=== PATIENT | male | born 1985 | race Caucasian/White ===

== ENCOUNTER 2020-06-10 02:14 | Emergency (ER) | payer MEDICAID, SELFPAY ==
--- NOTE | ~2020-06-10 | XR_ITS ---
EXAMINATION: RIGHT HAND 3 VIEWS CLINICAL INFORMATION: Pain and swelling. COMPARISON: None. TECHNIQUE: PA, lateral, oblique views of the right hand were obtained. FINDINGS: There are no acute fractures or dislocations. There is an old healed fourth metacarpal fracture. There is soft tissue prominence about the dorsum of the hand. XR/XR hand RT min 3V IMPRESSION: Soft tissue swelling without fracture or dislocation.
[2020-06-10 02:53] VITALS: BP 157/98; PULSE 84; RESP 16; TEMP 36.6; O2SAT 100; BMI 19.5
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
== END 2020-06-10 04:29 | disposition home or self-care (01) ==
PROVIDERS: Emergency Provider Student in an Organized Health Care Education/Training Program; PCP Internal Medicine
DX: S60.221A Contusion of right hand, initial encounter (principal); M79.641 Pain in right hand; Y29.XXXA Contact with blunt object, undetermined intent, initial encounter; Y93.9 Activity, unspecified; Y92.9 Unspecified place or not applicable; Y99.9 Unspecified external cause status
CPT/HCPCS: 73130; 99283

== ENCOUNTER 2021-03-17 11:18 | Emergency (ER) | payer MEDICAID, SELFPAY ==
--- NOTE | ~2021-03-17 | XR_ITS ---
EXAMINATION: XR CLAVICLE, RIGHT CLINICAL INFORMATION: Deformity COMPARISON: None TECHNIQUE: Frontal and oblique of the right clavicle. FINDINGS: Displaced fracture of the mid right clavicle with bone overlap by approximately 2.4 cm, the distal half of the clavicle displaced inferiorly by about 1.8 cm. Adjacent ribs are intact. XR/XR clavicle RT IMPRESSION: Displaced fracture mid diaphysis right clavicle.
[2021-03-17 12:51] VITALS: BP 118/74; PULSE 95; RESP 16; TEMP 36.6; O2SAT 98; BMI 23.7
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
== END 2021-03-17 13:31 | disposition home or self-care (01) ==
PROVIDERS: Emergency Provider Emergency Medicine; PCP Internal Medicine
DX: S42.001A Fracture of unspecified part of right clavicle, initial encounter for closed fracture (principal); M25.511 Pain in right shoulder; W18.30XA Fall on same level, unspecified, initial encounter; Y93.9 Activity, unspecified; Y92.9 Unspecified place or not applicable; Y99.9 Unspecified external cause status
CPT/HCPCS: 73000; 99284

== ENCOUNTER → 2021-03-19 13:50 | Outpatient (BNVA) | payer MEDICAID, SELFPAY | PROVIDERS: PCP Internal Medicine; Visit Provider Physician Assistant | DX: S42.001A Fracture of unspecified part of right clavicle, initial encounter for closed fracture (principal) | CPT/HCPCS: 99202 ==

== ENCOUNTER 2021-03-20 05:59 | Day surgery (SDC) | payer MEDICAID, SELFPAY ==
[2021-03-20] VITALS (9 sets, daily range): BP systolic 112–152; BP diastolic 71–89; PULSE 78–98; RESP 15–18; TEMP 36.4–36.7; O2SAT 95–99; BMI 20.2
--- NOTE | ~2021-03-20 | FL_ITS ---
EXAMINATION: XR FLUOROSCOPY WITH IMAGES CLINICAL INFORMATION: Right clavicular fracture, post reduction. COMPARISON: Radiographs right clavicle 03/17/2021. TECHNIQUE: Fluoroscopy performed by Dr. Chester Flores. Fluoroscopy time: 0.1 minutes DAP: 0.0083 Gycm2 Images: 3 FINDINGS: Mid clavicular fracture is reduced with superior side plate and wrist. Fracture fragments are in anatomic alignment. Hardware is intact. Acromioclavicular alignment is normal. FL/FL guidance in OR IMPRESSION: Status post reduction. Hardware intact.
--- NOTE | 2021-03-20 07:30 | MHC.SHP ---
Pre-Procedural Eval Section A Date of Service: 03/20/21 The patient is an INPATIENT: No Changes since office visit: Yes Patient answered all questions; No Cold of Flu in the past 2 weeks, No New Medical Problems and No Changes in Medication The History & Physical has been completed within 30 days and I have reviewed it.: Yes Section B Chief Complaint: fx of right clavical Allergies: Allergies Allergy/AdvReac Type Severity Reaction Status Date / Time No Known Allergies Allergy Verified 03/20/21 06:08 Plan I have reviewed the history and physical and performed a pertinent physical examination on my patient. No changes have occurred unless specified.
--- NOTE | 2021-03-20 09:01 | P.BOP_ITS ---
Brief Operative Note Date of Service: 03/20/21 Pre-op diagnosis: right clavicle fracture Procedure: ORIF right clavicle fracture Implants: Christina clavicle plate Surgeon: Chester Flores MD Anesthesia: GETA Was an Supervisor Special Effects used for this Procedure?: Yes Supervisor Special Effects: Carlos Uribe Estimated blood loss (mL): 25 IV fluids (mL): 800 Pathology: none sent Condition: stable Disposition: PACU
[2021-03-20] MEDS: oxyCODONE HCl Immed Release 5 MG TABLET PO (09:27)
[2021-03-20] MEDS: Acetaminophen 325 MG TABLET 650 MG PO (09:28)
[2021-03-20] MEDS: fentaNYL citrate/PF 100 MCG/2 ML VIAL 25 MCG IVPUSH (09:51)
--- NOTE | 2021-03-20 10:25 | HO.ANESPROP2 ---
HPI - Anesthesia Eval Consult details Narrative: 35 M for clavicle ORIF PMFSH Active Problems Active Problems: All Active Problems (Updated 03/20/21 @ 06:07 by Kelli Elmore RN) Right clavicle fracture (Acute) Past Medical History Medical History Anxiety Depression HTN (hypertension) Hypothyroid Family History Family history of problems with anesthesia: No Surgical History Surgical History History of back surgery History of Problems with Anesthesia: No Social History Social History Alcohol intake: current Alcohol intake frequency: a few times a week Alcohol type: beer Patient Tobacco Use Status: Current everyday Tobacco user Cigarette Packs Per Day: 1 Cigarettes Per Day: 20.0 Use of substances other than those prescribed or required for medical reasons: Yes Substance Use Frequency: Occasionally Are you DNR?: No Advance Directives: No Advance Directives Information Provided: Yes Current occupational status: unemployed Current occupation: rt handed Meds Allergies Allergy/AdvReac Type Severity Reaction Status Date / Time No Known Allergies Allergy Verified 03/20/21 06:08 Home Medications Medication Instructions Recorded Confirmed Last Taken Type naproxen sodium 220 mg tablet 220 mg PO BID PRN 03/19/21 Unknown History (Aleve) amlodipine 2.5 mg tablet 1 tab PO DAILY 03/20/21 03/20/21 Unknown History citalopram 40 mg tablet 1 tab PO DAILY 03/20/21 03/20/21 03/20/21 04:30 History levothyroxine 25 mcg tablet 1 tab PO DAILY 03/20/21 03/20/21 03/20/21 04:30 History metoprolol succinate 100 mg 1 tab PO DAILY 03/20/21 03/20/21 03/20/21 04:30 History tablet,extended release 24 hr Exam Exam Date and Time: March 20, 2021 1025 Height,Weight and Vital Signs: Height 5 ft 11 in Weight 145 lb Last Vital Signs Temp 97.7 F 03/20/21 09:11 Pulse 78 03/20/21 10:11 Resp 16 03/20/21 10:11 BP 139/86 03/20/21 10:11 Pulse Ox 96 03/20/21 10:11 Airway Mallampati Class: II TM Dist: >3cm Neck ROM: Full Loose/Missing/Broken Teeth: Yes Assessment and Plan Assessment Anesthesia Assessment: Anesthesia Plan Discussed and Chart Reviewed Final Anesthetic Review Family History of Problems with Anesthesia: No History of Problems with Anesthesia: No NPO: Yes ASA Class: II Final Preanesthetic Review: No Changes in Pt Med Stat, Meds/Allgs Chart Reviewed, Consent Obtained/Reviewed and Anes Risks/Benef Reviewed Patient Risk: Low Procedure Risk: Low Anesthetic Plan Anesthetic Plan: GA Disposition: Standard PACU
--- NOTE | 2021-03-21 10:42 | W.PM.OPN ---
Operative Note Operative Note Date of Service: 03/20/21 Narrative: Date of Service: 03/20/21 Pre-op diagnosis: right clavicle fracture Procedure: ORIF right clavicle fracture Implants: Christina clavicle plate Surgeon: Chester Flores MD Anesthesia: GETA Was an Maintenance Shop Welder used for this Procedure?: Yes Maintenance Shop Welder: Carlos Uribe Estimated blood loss (mL): 25 IV fluids (mL): 800 Pathology: none sent Condition: stable Disposition: PACU Patient was brought to the operating room and placed in the beach chair position on the surgical table. The site was prepped and draped in standard sterile fashion and a time out was called to identify proper site, proper procedure and IV antibiotics per weight were administered. I began by making a superior incision over the clavicle. Once through skin Littler scissors were used to dissect through the clavicular fascia. The medial fracture fragment was identified and a lobster claw tenaculum was used to stabilize it. The lateral fracture fragments were then identified and, using a combination of irrigation and sharp debridement, I cleaned up the fracture fragments. This was the shortened with some anterior comminution and a 6 hole bridge plate was selected. I used an additional lobster claw to provisionally reduce the fracture and the bridge plate was placed superiorly and held in place with olive-tipped K-wires while radiographs were obtained. Visually I was satisfied with the fracture reduction and radiographs demonstrated sufficient length of the plate. I then used standard AO technique to place 3 bicortical screws medial to the fracture and 3 bicortical screws laterally so that the plate spanned the comminuted midshaft fracture. Again biplanar fluoroscopy was used to confirm appropriate hardware location, fracture reduction and screw length. Once I was satisfied with these parameters I copiously irrigated and closed with absorbable suture, skin glue and Steri-Strips. Patient was placed in sterile dressing and extubated brought to recovery room stable condition. There were no known complications.
== END 2021-03-20 10:57 | disposition home or self-care (01) ==
PROVIDERS: PCP Internal Medicine; Visit Provider Orthopaedic Surgery
PROC: (CPT 23515; principal; 2021-03-20 07:30)
DX: S42.001A Fracture of unspecified part of right clavicle, initial encounter for closed fracture (principal); W19.XXXA Unspecified fall, initial encounter; Y93.9 Activity, unspecified; Y92.9 Unspecified place or not applicable; Y99.8 Other external cause status; I10 Essential (primary) hypertension; F41.8 Other specified anxiety disorders; F17.210 Nicotine dependence, cigarettes, uncomplicated; E03.9 Hypothyroidism, unspecified; Z79.899 Other long term (current) drug therapy
CPT/HCPCS: 23515; C1713; J0690; J1100; J1170; J1885; J2250; J2370; J2405; J3010

== ENCOUNTER 2021-04-02 09:49 | Outpatient (REF) | payer MEDICAID, SELFPAY ==
--- NOTE | ~2021-04-02 | XR_ITS ---
EXAMINATION: XR CLAVICLE, RIGHT CLINICAL INFORMATION: Fracture right clavicle. Follow-up. COMPARISON: Radiographs right clavicle 03/17/2021. TECHNIQUE: Two views of the right clavicle. FINDINGS: The mid right clavicular fracture is reduced with superior side compression plate and multiple screws. The hardware is intact. Fracture fragments are in near-anatomic alignment. There is no destructive process. The acromioclavicular alignment is normal. XR/XR clavicle RT IMPRESSION: Status post reduction mid right clavicular fracture.
== END 2021-04-02 09:50 | disposition home or self-care (01) ==
LOC: HO.HOSX 09:49
PROVIDERS: Visit Provider Physician Assistant
DX: S42.001D Fracture of unspecified part of right clavicle, subsequent encounter for fracture with routine healing (principal)
CPT/HCPCS: 73000; 99212

== ENCOUNTER → 2021-04-16 11:36 | Outpatient (BNVA) | payer MEDICAID, SELFPAY | PROVIDERS: Visit Provider Physician Assistant | DX: S42.001D Fracture of unspecified part of right clavicle, subsequent encounter for fracture with routine healing (principal) | CPT/HCPCS: 99212 ==

== ENCOUNTER → 2021-04-23 14:01 | Outpatient (BNVA) | payer MEDICAID, SELFPAY | PROVIDERS: Visit Provider Physician Assistant | DX: S42.001D Fracture of unspecified part of right clavicle, subsequent encounter for fracture with routine healing (principal) | CPT/HCPCS: 99212 ==

== ENCOUNTER 2021-05-08 12:25 | Outpatient (REF) | payer MEDICAID, SELFPAY ==
--- NOTE | ~2021-05-08 | XR_ITS ---
EXAMINATION: XR CLAVICLE, RIGHT CLINICAL INFORMATION: Fracture COMPARISON: Previous exam March 2021 TECHNIQUE: 2 of the right clavicle. FINDINGS: There is a plate and screws transfixing the right clavicle fracture. Orthopedic hardware appears unchanged. Fracture line is still seen. Overlying soft tissues are unremarkable. XR/XR clavicle RT IMPRESSION: ORIF of right clavicle fracture. No change from March 2021 exam.
== END 2021-05-08 12:26 | disposition home or self-care (01) ==
LOC: HO.HOSX 12:25
PROVIDERS: Visit Provider Physician Assistant
DX: S42.001D Fracture of unspecified part of right clavicle, subsequent encounter for fracture with routine healing (principal)
CPT/HCPCS: 73000; 99212

== ENCOUNTER 2021-05-15 11:00 | Outpatient (RCR) | payer MEDICAID, SELFPAY ==
--- NOTE | 2021-05-09 11:43 | MHC.PT.EP ---
[facility] [place] [facility] [place] [facility] [place] Office [address] Roman Moyer [address] [phone] F: [phone] F: [phone] F: [phone] F: [phone] Physical Therapy Plan of Care Date of Evaluation: Date of Surgery: 03/21/2021 Diagnosis: fx of R clavicle s/p R clavicle ORIF Assessment: Patient is a 35 year old male presenting to PT s/p R clavicle ORIF on 03/21/2021. He presents today with impairments in pain, ROM, posture, and strength. 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 Pt expresses fpc goal of reduce pain and improve ROM, and is motivated to work towards this in PT. Clinical presentation today is most consistent with signs and sx associated with s/p R clavicle ORIF and pt will benefit from skilled PT to address the following problems and impairments noted upon evaluation: pain, ROM, posture, and strength. These problems limit the patient with the following functional activities: ADLs, work, reaching, lifting. The prescribed treatment plan of care is medically necessary. Co-morbidities of HTN were identified and taken into considerations of plan of care. Pt was educated on HEP, role of PT, prognosis, POC. Frequency and Duration: The patient will be seen 2 x week x 6 weeks Short Term Goals: Pt will demonstrate full shoulder ROM in all directions in 3 weeks. Pt will demonstrate improved shoulder strength by 1/3 MMT in 3 weeks. Pt will demonstrate improved postural awareness by sitting with biomechanically correct posture without cues throughout session to improve overall postural function in 3 weeks. Bricklayer Sewer Goals: Pt will demonstrate improved SPADI score by 13 points in 6 weeks for improved UE functional mobility. Pt will demonstrate ability to reach with min to no pain in 6 weeks for improved ability to complete ADLs. Pt will demonstrate ability to lift with min to no pain in 6 weeks for return to PLOF. Treatment Plan: Modalities to reduce pain, spasms and effusion. Manual therapy to restore motion and function. Therapeutic exercise to improve strength and flexibility. Neuromuscular re-education for posture and balance. Therapeutic activities to return to functional activities of daily living. Electronically signed by: Diane Mtz, PT, DPT, ATC Please sign and return to therapist. Thank you for your referral.
--- NOTE | 2021-05-25 11:23 | MHC.PT.DC ---
[facility] [place] Office [place] Office [place] Office [address] Roman Moyer [address] [phone] F: [phone] F: [phone] F: [phone] F: [phone] Physical Therapy Discharge Report Diagnosis: fx of R clavicle s/p R clavicle ORIF Date of Surgery: 03/21/2021 Date of Evaluation: 05/09/21 Date of Discharge: 05/25/21 Treatments to Date: 2 Cancellations to Date: 0 No Shows to Date: 3 Discharge Status: Visit Non-compliance Discharge Summary: Pt has failed to comply with [facility] attendance policy and now showed his last 3 appointments. Multiple attempts to reach patient have been unsuccessful and therefore pt current status unknown at this time. Electronically signed by: Diane Mtz, PT, DPT, ATC Please sign and return to therapist. Thank you for your referral.
== END 2021-05-25 11:23 | disposition home or self-care (01) ==
LOC: HO.PTCHIC 11:00
PROVIDERS: PCP Internal Medicine; Visit Provider Physician Assistant
DX: S42.001A Fracture of unspecified part of right clavicle, initial encounter for closed fracture (principal)
CPT/HCPCS: 97110; 97161

== ENCOUNTER 2021-08-06 08:16 | Outpatient (REF) | payer MEDICAID, SELFPAY ==
--- NOTE | ~2021-08-06 | XR_ITS ---
EXAMINATION: XR CLAVICLE, RIGHT CLINICAL INFORMATION: Fracture COMPARISON: X-ray 05/08/2021 TECHNIQUE: Two views of the right clavicle. FINDINGS: Plate and screws transfixing the right clavicle fracture. Hardware is stable, intact. Fracture plane remains visible, decreased in conspicuity. No new fractures are seen. XR/XR clavicle RT IMPRESSION: ORIF right clavicular fracture, with decreased conspicuity of the fracture plane.
== END 2021-08-06 08:17 | disposition home or self-care (01) ==
LOC: HO.HOSX 08:16
PROVIDERS: Visit Provider Physician Assistant
DX: S42.001D Fracture of unspecified part of right clavicle, subsequent encounter for fracture with routine healing (principal)
CPT/HCPCS: 73000; 99212

== ENCOUNTER 2021-12-18 20:22 | Emergency (ER) | payer MEDICAID, SELFPAY ==
[2021-12-18 20:38] VITALS: BP 148/92; PULSE 89; RESP 17; TEMP 37; O2SAT 99; BMI 20.2
== END 2021-12-18 21:50 | disposition left against medical advice (07) ==
LOC: HO.ED 21:35
PROVIDERS: Emergency Provider Emergency Medicine
DX: R51.9 Headache, unspecified (principal)
CPT/HCPCS: 99281

== ENCOUNTER 2022-07-13 16:33 | Emergency (ER) | payer OTHER, SELFPAY ==
--- NOTE | ~2022-07-13 | XR_ITS ---
EXAMINATION: XR KNEE, RIGHT CLINICAL INFORMATION: Knee pain and swelling COMPARISON: None available. TECHNIQUE: Four views of the right knee. FINDINGS: There is anatomic alignment. Joint spaces are maintained. No visible acute fracture or dislocation. There is anterior soft tissue swelling in the region of the distal quadriceps tendon, patellar and patellar tendon. There is limited visualization/evaluation of the underlying patellar tendon on x-ray. Findings are of uncertain etiology. Differential considerations include sequela of trauma, edema, hematoma, fluid collection, bursitis, tendon abnormality/injury. XR/XR knee RT 3V IMPRESSION: Prominent anterior soft tissue swelling in the region of the distal quadriceps tendon, patella, patellar tendon. Limited visualization/evaluation of the underlying patellar tendon. Differential consideration include sequela of trauma, edema, hematoma, fluid collection, bursitis, tendon abnormality/injury, inflammatory/infectious etiology. Clinically correlate. Further evaluation with CT or MRI as clinically warranted.
[2022-07-13 16:46] VITALS: BP 143/86; PULSE 87; RESP 18; TEMP 37.4; O2SAT 97; BMI 18.3
--- NOTE | 2022-07-13 16:48 | ED.LOWEXIN ---
HPI - Extremity Injury (Lower) General Chief Complaint: Extremity Injury, Lower <SIN Barger - Last Filed: 07/13/22 16:53> Stated Complaint: knee injury from work, swollen <SIN Barger - Last Filed: 07/13/22 16:53> Time Seen by Provider: 07/13/22 18:16 <SIN Barger - Last Filed: 07/13/22 16:53> Source: patient, RN notes reviewed and old records reviewed <KYLEE Wright - Last Filed: 07/14/22 01:47> Mode of arrival: ambulatory <KYLEE Wright - Last Filed: 07/14/22 01:47> Limitations: no limitations <KYLEE Wright - Last Filed: 07/14/22 01:47> History of Present Illness MD complaint: knee injury <KYLEE Wright - Last Filed: 07/14/22 01:47> Onset (ago): day(s) <KYLEE Wright - Last Filed: 07/14/22 01:47> Type of Injury: blunt <KYLEE Wright - Last Filed: 07/14/22 01:47> Place: work <KYLEE Wright - Last Filed: 07/14/22 01:47> Severity: moderate <KYLEE Wright - Last Filed: 07/14/22 01:47> Relieving factors: NSAID <KYLEE Wright - Last Filed: 07/14/22 01:47> Related Data Home Medications: Home Medications Medication Instructions Recorded Confirmed naproxen sodium 220 mg tablet 220 mg PO BID PRN Pain 03/19/21 05/08/21 (Aleve) amlodipine 2.5 mg tablet 1 tab PO DAILY 03/20/21 05/08/21 citalopram 40 mg tablet 1 tab PO DAILY 03/20/21 05/08/21 levothyroxine 25 mcg tablet 1 tab PO DAILY 03/20/21 05/08/21 metoprolol succinate 100 mg 1 tab PO DAILY 03/20/21 05/08/21 tablet,extended release 24 hr Previous Rx's Medication Instructions Recorded oxycodone-acetaminophen 5 mg-325 1 tab PO Q4-6H PRN pain 7 days #42 03/20/21 mg tablet (Percocet) tabs cephalexin 500 mg capsule 500 mg PO BID #20 caps 07/13/22 doxycycline monohydrate 100 mg 100 mg PO BID #20 caps 07/13/22 capsule prednisone 20 mg tablet 40 mg PO DAILY #6 tabs 07/13/22 <SIN Barger - Last Filed: 07/13/22 16:53> Allergies/Adverse Reactions: Allergies Allergy/AdvReac Type Severity Reaction Status Date / Time No Known Allergies Allergy Verified 12/18/21 20:39 <SIN Barger - Last Filed: 07/13/22 16:53> Review of Systems Constitutional: Constitutional: Denies weight gain and Denies weight loss <STACIE Wright-BC - Last Filed: 07/14/22 01:47> ENT: Reports system reviewed and no additional complaints, except as documented <EMILI WrightP-BC - Last Filed: 07/14/22 01:47> Cardiovascular: Cardiovascular: Reports no additional cardiovascular complaints <STACIE Wright-BC - Last Filed: 07/14/22 01:47> Respiratory: Respiratory: Reports no additional respiratory complaints <STACIE Wright-BC - Last Filed: 07/14/22 01:47> Gastrointestinal: Gastrointestinal: Reports no additional gastrointestinal complaints <STACIE Wright-BC - Last Filed: 07/14/22 01:47> Genitourinary: Genitourinary: Reports no additional male genitourinary complaints <EMILI WrightP-BC - Last Filed: 07/14/22 01:47> Musculoskeletal: Musculoskeletal: Reports arthralgias and Reports joint swelling <STACIE Wright-BC - Last Filed: 07/14/22 01:47> Neurologic: Reports system reviewed and no additional complaints, except as documented <STACIE Wright-BC - Last Filed: 07/14/22 01:47> Psychiatric: Psychiatric: Reports no additional psychiatric complaints <KYLEE Wright - Last Filed: 07/14/22 01:47> Endocrine: Endocrine: Reports no additional endocrine complaints <KYLEE Wright - Last Filed: 07/14/22 01:47> [facility] Past Medical History Medical History: Medical History Anxiety Depression HTN (hypertension) Hypothyroid <SIN Barger - Last Filed: 07/13/22 16:53> Surgical History: Surgical History History of back surgery <SIN Barger - Last Filed: 07/13/22 16:53> Social History Social History: Social History (Updated 08/06/21 @ 15:34 by Toshia Rios José Antonio) Alcohol intake: never Patient Tobacco Use Status: Current everyday Tobacco user Cigarette Packs Per Day: 1 Cigarettes Per Day: 20.0 Smoked in Last 30 Days: No Use of substances other than those prescribed or required for medical reasons: No Advance Directives: No Advance Directives Information Provided: No Current occupational status: employed and unemployed 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, 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 <SIN Barger - Last Filed: 07/13/22 16:53> Physical Exam Vital Signs: Vital Signs: Last Vital Signs Temp 99.4 F 07/13/22 16:46 Pulse 87 07/13/22 16:46 Resp 18 07/13/22 16:46 BP 143/86 H 07/13/22 16:46 Pulse Ox 97 07/13/22 16:46 O2 Del Method Room Air 07/13/22 16:46 BMI result Body Mass Index 18.3 <SIN Barger - Last Filed: 07/13/22 16:53> Vital Signs: Last Vital Signs Temp 99.4 F 07/13/22 16:46 Pulse 87 07/13/22 16:46 Resp 18 07/13/22 16:46 BP 143/86 H 07/13/22 16:46 Pulse Ox 97 07/13/22 16:46 O2 Del Method Room Air 07/13/22 16:46 BMI result Body Mass Index 18.3 <KYLEE Wright - Last Filed: 07/14/22 01:47> Const: General: healthy appearing, no acute distress and well developed <Bridget Rachael Jackson MUSHROOM SORTER GRADER-BC - Last Filed: 07/14/22 01:47> Nutritional Appearance: well nourished <Bridget Cano Renetta [employer]HROOM SORTER GRADER-BC - Last Filed: 07/14/22 01:47> Orientation/consciousness: patient oriented x3 <Bridget Rachael Renetta, MUSHROOM SORTER GRADER-BC - Last Filed: 07/14/22 01:47> HEENT: Head: Yes normal to inspection, Yes normocephalic and Yes atraumatic <Bridget Rachael Jackson [employer]HROOM SORTER GRADER-BC - Last Filed: 07/14/22 01:47> Face and sinus: Yes normal facial exam <Bridget Rachael Jackson [employer]HROOM SORTER GRADER-BC - Last Filed: 07/14/22 01:47> Mouth: Normal oral and palatal mucosa present <Bridgetjosé antonio Jackson MUSHROOM SORTER GRADER-BC - Last Filed: 07/14/22 01:47> Throat: Yes posterior oropharynx normal, Yes tonsils normal and Yes uvula midline <Bridget Rachael Jackson [employer]HROOM SORTER GRADER-BC - Last Filed: 07/14/22 01:47> Eyes: General: appearance normal, both eyes and all related structures <Bridget Rachael Jackson [employer]HROOM SORTER GRADER-BC - Last Filed: 07/14/22 01:47> Neck: Neck: Yes normal visual inspection, Yes full ROM and Yes trachea midline <Bridgetjosé antonio Jackson MUSHROOM SORTER GRADER-BC - Last Filed: 07/14/22 01:47> Thyroid: Thyroid normal <Bridget Rachael Jackson [employer]HROOM SORTER GRADER-BC - Last Filed: 07/14/22 01:47> Resp: Effort & Inspection: normal respiratory effort, able to speak in complete sentences, no tracheal deviation and symmetric chest movement <Bridgetjosé antonio Jackson MUSHROOM SORTER GRADER-BC - Last Filed: 07/14/22 01:47> Auscultation: clear to auscultation bilaterally <Bridgetjosé antonio Jackson [employer]HROOM SORTER GRADER-BC - Last Filed: 07/14/22 01:47> Cardio: Rate: regular rate <Bridget Rachael Jackson MUSHROOM SORTER GRADER-BC - Last Filed: 07/14/22 01:47> GI: Inspection: Yes normal to inspection and No distended <Bridget Rachael Pisanoo, MUSHROOM SORTER GRADER-BC - Last Filed: 07/14/22 01:47> Palpation (GI): Soft to palpation, not firm, nontender and No hepatosplenomegaly present <Bridget D Renetta, MUSHROOM SORTER GRADER-BC - Last Filed: 07/14/22 01:47> Auscultation: normal bowel sounds <Bridget D Renetta, MUSHROOM SORTER GRADER-BC - Last Filed: 07/14/22 01:47> : General: Yes no CVA tenderness <Bridget D Renetta, MUSHROOM SORTER GRADER-BC - Last Filed: 07/14/22 01:47> Back/Spine/Pelvis: Back: no CVA tenderness <Bridget D Renetta, MUSHROOM SORTER GRADER-BC - Last Filed: 07/14/22 01:47> Skin: General skin exam: elasticity normal, turgor normal and dry skin <Bridget D Renetta, MUSHROOM SORTER GRADER-BC - Last Filed: 07/14/22 01:47> Neuro: General: patient oriented x3 <Bridget D Renetta, MUSHROOM SORTER GRADER-BC - Last Filed: 07/14/22 01:47> Extrem: General: Yes other (Right knee swelling) <Bridget D Renetta, MUSHROOM SORTER GRADER-BC - Last Filed: 07/14/22 01:47> Right upper extremity: edema <Bridget D Renetta, MUSHROOM SORTER GRADER-BC - Last Filed: 07/14/22 01:47> Left upper extremity: edema <Bridget D Renetta, MUSHROOM SORTER GRADER-BC - Last Filed: 07/14/22 01:47> Knee images: 1. Swelling, redness, increased warmth <Cesia Leon PA - Last Filed: 07/13/22 16:53> Knee images: 1. Swelling, redness, increased warmth <Bridget Rachael Pisanoo, MUSHROOM SORTER GRADER-BC - Last Filed: 07/14/22 01:47> Psych: Appearance: grossly normal <Bridget D Renetta, MUSHROOM SORTER GRADER-BC - Last Filed: 07/14/22 01:47> Mental Status: mental status grossly normal <Bridget D Renetta, MUSHROOM SORTER GRADER-BC - Last Filed: 07/14/22 01:47> Speech and movement: Normal speech and movement present <KYLEE Wright - Last Filed: 07/14/22 01:47> Affect: normal affect <KYLEE Wright - Last Filed: 07/14/22 01:47> Attitude: cooperative <KYLEE Wright - Last Filed: 07/14/22 01:47> Thought process: Normal thought process present <KYLEE Wright - Last Filed: 07/14/22 01:47> Thought content: Normal thought content present <KYLEE Wright - Last Filed: 07/14/22 01:47> Insight: Good insight present (Psych) <KYLEE Wright - Last Filed: 07/14/22 01:47> Judgement: Good judgement present (Psych) <KYLEE Wright - Last Filed: 07/14/22 01:47> Course Course Course Narrative: This is an RME: Additional HPI, ROS, PE not included below will be deferred to primary provider. This is a 37 year old male, with a past medical history of hypertension, presenting to the emergency department with a complaint of right knee pain, redness, and swelling x 2 days. Patient states that he banged his right knee on a concrete wall. Patient is ambulatory. Right knee is erythematous, warm, and TTP. Limited flexion and extension of the right knee. Plan: R knee xray ordered. Basic labs ordered. <SIN Barger - Last Filed: 07/13/22 16:53> Reevaluation(s) Reevaluation #1: Prominent anterior soft tissue swelling in the region of distal quadriceps tendon, patella, patella tendon. Will order patient Keflex, doxycycline and prednisone for couple days. First dose will be given in the ER. Patient will follow-up with orthopedic surgeon. He will return to emergency department if his symptoms will get worse <KYLEE Wright - Last Filed: 07/14/22 01:47> Medications Administered Discontinued Medications Generic Name Dose Route Start Last Admin Trade Name Freq PRN Reason Stop Dose Admin Cephalexin HCl 500 mg 07/13/22 18:46 07/13/22 19:09 Cephalexin 500 Mg Capsule PO 07/13/22 18:47 500 mg ONCE STA Administration Doxycycline Monohydrate 100 mg 07/13/22 18:46 07/13/22 19:09 Doxycycline Monohydrate 100 Mg Capsule PO 07/13/22 18:47 100 mg ONCE ONE Administration Prednisone 40 mg 07/13/22 18:46 07/13/22 19:09 Prednisone 20 Mg Tablet PO 07/13/22 18:47 40 mg ONCE ONE Administration <SIN Barger - Last Filed: 07/13/22 16:53> Medications Administered Discontinued Medications Generic Name Dose Route Start Last Admin Trade Name Ry PRN Reason Stop Dose Admin Cephalexin HCl 500 mg 07/13/22 18:46 07/13/22 19:09 Cephalexin 500 Mg Capsule PO 07/13/22 18:47 500 mg ONCE STA Administration Doxycycline Monohydrate 100 mg 07/13/22 18:46 07/13/22 19:09 Doxycycline Monohydrate 100 Mg Capsule PO 07/13/22 18:47 100 mg ONCE ONE Administration Prednisone 40 mg 07/13/22 18:46 07/13/22 19:09 Prednisone 20 Mg Tablet PO 07/13/22 18:47 40 mg ONCE ONE Administration <STACIE Wright-BC - Last Filed: 07/14/22 01:47> Medical Decision Making Medical Decision Making MDM Narrative: Triage note his is a 37 year old male, with a past medical history of hypertension, presenting to the emergency department with a complaint of right knee pain, redness, and swelling x 2 days. Patient states that he banged his right knee on a concrete wall. Patient is ambulatory. Right knee is erythematous, warm, and TTP. Limited flexion and extension of the right knee. Plan: R knee xray ordered. Basic labs ordered. Patient re-evaluated, right knee red, warm to touch, x-ray reviewed soft tissue swelling no visible acute fracture or dislocation, joint spaces are maintained. Will send patient home with antibiotics. Patient had tetanus vaccine 3 weeks ago. Will give him prednisone for 3 days. Patient will follow-up with ortho. Education provided to patient about the need for returning to ED if swelling increases or patient when not be able to flex his knee <EMILI WrightP-BC - Last Filed: 07/14/22 01:47> Lab Data Result Diagrams: 07/13/22 17:34 07/13/22 17:34 <SIN Barger - Last Filed: 07/13/22 16:53> Labs: Lab Results 07/13/22 07/13/22 07/13/22 Range/Units 17:34 17:34 17:34 WBC 14.0 H (4.8-10.8) X10*3/uL RBC 4.70 (4.60-5.80) X10*6/uL Hgb 14.3 (14.0-18.0) g/dl Hct 42.5 (42.0-52.0) % MCV 90.4 (80.0-98.0) fL MCH 30.4 (27.0-33.0) pg MCHC 33.6 (31.0-36.0) g/dl RDW 12.1 (11.0-16.0) % Plt Count 341 (160-400) X10*3/uL MPV 8.1 L (9.4-12.4) fL Immature Gran % (Auto) 0.4 (0.0-0.4) % Neut % (Auto) 65.2 (45-73) % Lymph % (Auto) 19.5 L (20-40) % [place] % (Auto) 12.4 H (2-11) % Eos % (Auto) 1.9 (0-4) % Baso % (Auto) 0.6 (0-2) % Lymph # (Auto) 2.7 (1.2-4.9) X10*3/uL [place] # (Auto) 1.7 H (0.1-1.2) X10*3/uL Eos # (Auto) 0.3 (0.0-0.4) X10*3/uL Baso # (Auto) 0.1 (0.0-0.2) X10*3/uL Abs Immat Gran (auto) 0.05 H (0.00-0.03) X10*3/uL Absolute Neuts (auto) 9.2 H (2.0-8.3) x10*3/uL Absolute Nucleated RBC 0.000 (0.0-0.012) X10*3/uL Nucleated RBC % (auto) 0.0 (0.0-0.2) /100WBC Smear Tech's Comments VERIFIED ESR 5 (0-15) MM/HR Sodium 140 (135-145) mmol/L Potassium 4.3 (3.3-5.1) mmol/L Chloride 106 (96-108) mmol/L Carbon Dioxide 24 (22-29) mmol/L Anion Gap 14 (12-20) BUN 15 (9-16) mg/dL Creatinine 0.77 (0.5-1.4) mg/dL Estim Creat Clear Calc 112.6 Estimated GFR > 60 Random Glucose 112 (60-115) mg/dL Calcium 9.9 (8.4-10.2) mg/dL Magnesium 2.1 (1.6-2.6) mg/dL Total Bilirubin 0.6 (0.0-1.0) mg/dL Direct Bilirubin 0.3 (0.0-0.5) mg/dL AST 25 (5-37) U/L ALT 18 (0-40) U/L Alkaline Phosphatase 71 (39-117) U/L C-Reactive Protein 3.88 H (< or = 0.50) mg/dL Total Protein 7.8 (6.5-8.0) g/dL Albumin 4.7 (3.5-5.0) g/dL Ethyl Alcohol 238 mg/dL <SIN Barger - Last Filed: 07/13/22 16:53> Lab Results 07/13/22 07/13/22 07/13/22 Range/Units 17:34 17:34 17:34 WBC 14.0 H (4.8-10.8) X10*3/uL RBC 4.70 (4.60-5.80) X10*6/uL Hgb 14.3 (14.0-18.0) g/dl Hct 42.5 (42.0-52.0) % MCV 90.4 (80.0-98.0) fL MCH 30.4 (27.0-33.0) pg MCHC 33.6 (31.0-36.0) g/dl RDW 12.1 (11.0-16.0) % Plt Count 341 (160-400) X10*3/uL MPV 8.1 L (9.4-12.4) fL Immature Gran % (Auto) 0.4 (0.0-0.4) % Neut % (Auto) 65.2 (45-73) % Lymph % (Auto) 19.5 L (20-40) % [place] % (Auto) 12.4 H (2-11) % Eos % (Auto) 1.9 (0-4) % Baso % (Auto) 0.6 (0-2) % Lymph # (Auto) 2.7 (1.2-4.9) X10*3/uL [place] # (Auto) 1.7 H (0.1-1.2) X10*3/uL Eos # (Auto) 0.3 (0.0-0.4) X10*3/uL Baso # (Auto) 0.1 (0.0-0.2) X10*3/uL Abs Immat Gran (auto) 0.05 H (0.00-0.03) X10*3/uL Absolute Neuts (auto) 9.2 H (2.0-8.3) x10*3/uL Absolute Nucleated RBC 0.000 (0.0-0.012) X10*3/uL Nucleated RBC % (auto) 0.0 (0.0-0.2) /100WBC Smear Tech's Comments VERIFIED ESR 5 (0-15) MM/HR Sodium 140 (135-145) mmol/L Potassium 4.3 (3.3-5.1) mmol/L Chloride 106 (96-108) mmol/L Carbon Dioxide 24 (22-29) mmol/L Anion Gap 14 (12-20) BUN 15 (9-16) mg/dL Creatinine 0.77 (0.5-1.4) mg/dL Estim Creat Clear Calc 112.6 Estimated GFR > 60 Random Glucose 112 (60-115) mg/dL Calcium 9.9 (8.4-10.2) mg/dL Magnesium 2.1 (1.6-2.6) mg/dL Total Bilirubin 0.6 (0.0-1.0) mg/dL Direct Bilirubin 0.3 (0.0-0.5) mg/dL AST 25 (5-37) U/L ALT 18 (0-40) U/L Alkaline Phosphatase 71 (39-117) U/L C-Reactive Protein 3.88 H (< or = 0.50) mg/dL Total Protein 7.8 (6.5-8.0) g/dL Albumin 4.7 (3.5-5.0) g/dL Ethyl Alcohol 238 mg/dL <STACIE Wright-SUELLEN - Last Filed: 07/14/22 01:47> Discharge Plan Discharge Clinical Impression: Knee bursitis <SIN Barger - Last Filed: 07/13/22 16:53> Patient Disposition: Home, Self-Care <SIN Barger Last Filed: 07/13/22 16:53> Instructions: Knee Bursitis (ED) <SIN Barger Last Filed: 07/13/22 16:53> Additional Instructions: You were seen here today for right knee swelling and redness. X-ray negative for fracture. You most likely have inflammation. Please take antibiotics for the next 10 days. Also take prednisone for the next 3 days. You received 1st dose today. You will be referred to orthopedics. You may call their office on Friday for [phone]. Please return to emergency department if the redness will spread or if you will have difficulty of bending your knee. <SIN Barger - Last Filed: 07/13/22 16:53> Prescriptions: New doxycycline monohydrate 100 mg capsule 100 mg PO BID Qty: 20 0RF cephalexin 500 mg capsule 500 mg PO BID Qty: 20 0RF prednisone 20 mg tablet 40 mg PO DAILY Qty: 6 0RF No Action citalopram 40 mg tablet 1 tab PO DAILY metoprolol succinate 100 mg tablet extended release 24 hr 1 tab PO DAILY amlodipine 2.5 mg tablet 1 tab PO DAILY levothyroxine 25 mcg tablet 1 tab PO DAILY oxycodone-acetaminophen [Percocet] 5-325 mg tablet 1 tab PO Q4-6H PRN (Reason: pain) 7 Days Qty: 42 0RF naproxen sodium [Aleve] 220 mg tablet 220 mg PO BID PRN (Reason: Pain) <SIN Barger Last Filed: 07/13/22 16:53> Referrals: Carlos Uribe PA-C [Physician Senior Media Buyer] - (Right knee bursitis) Erik Lino MD [Primary Care Provider] - <SIN Barger - Last Filed: 07/13/22 16:53> Stand Alone Forms: Work/School Release <SIN Barger - Last Filed: 07/13/22 16:53> Interventions: ED Discharge Assessment Last Done: 07/13/22 19:32 <SIN Barger - Last Filed: 07/13/22 16:53> Discharge Date/Time: 07/13/22 19:41 <SIN Barger - Last Filed: 07/13/22 16:53>
[2022-07-13 17:39] LABS: Basophils Absolute Auto 0.1 X10*3/uL (0.0-0.2); Basophils Percent Auto 0.6 % (0-2); Eosinophils Absolute Auto 0.3 X10*3/uL (0.0-0.4); Eosinophils Percent Auto 1.9 % (0-4); Hematocrit 42.5 % (42.0-52.0); Hemoglobin 14.3 g/dl (14.0-18.0); Imm Gran Abs Auto 0.05 X10*3/uL (0.00-0.03); Imm Gran Pct Auto 0.4 % (0.0-0.4); Lymphocytes Absolute Auto 2.7 X10*3/uL (1.2-4.9); Lymphocytes Percent Auto 19.5 % (20-40); MANUAL DIFF FLAG SCAN; Mean Corpuscular HGB Conc 33.6 g/dl (31.0-36.0); Mean Corpuscular Hemoglobin 30.4 pg (27.0-33.0); Mean Corpuscular Volume 90.4 fL (80.0-98.0); Mean Platelet Volume 8.1 fL (9.4-12.4); Monocytes Absolute Auto 1.7 X10*3/uL (0.1-1.2); Monocytes Percent Auto 12.4 % (2-11); Neutrophils Absolute Auto 9.2 x10*3/uL (2.0-8.3); Neutrophils Percent Auto 65.2 % (45-73); Platelet Count 341 X10*3/uL (160-400); Red Cell Distribution Width 12.1 % (11.0-16.0); SCAN SMEAR FLAG 1
[2022-07-13 17:57] LABS: Alanine Aminotransferase 18 U/L (0-40); Albumin Level 4.7 g/dL (3.5-5.0); Alkaline Phosphatase 71 U/L (39-117); Anion Gap 14 (12-20); Aspartate Amino Transferase 25 U/L (5-37); Bilirubin Direct 0.3 mg/dL (0.0-0.5); Bilirubin Total 0.6 mg/dL (0.0-1.0); Blood Urea Nitrogen 15 mg/dL (9-16); C Reactive Protein 3.88 mg/dL (< or = 0.50); Calcium 9.9 mg/dL (8.4-10.2); Carbon Dioxide 24 mmol/L (22-29); Chloride 106 mmol/L (96-108); Creatinine Clr Calc Pharmacy 112.6; Estimated Glomerular Filt Rate > 60; Ethanol 238 mg/dL; Glucose Random 112 mg/dL (60-115); Magnesium 2.1 mg/dL (1.6-2.6); Potassium 4.3 mmol/L (3.3-5.1); Sodium 140 mmol/L (135-145); Total Protein 7.8 g/dL (6.5-8.0)
[2022-07-13 17:58] LABS: SLIDE REVIEW VERIFIED
[2022-07-13 18:21] LABS: Erythrocyte Sedimentation Rate 5 MM/HR (0-15)
[2022-07-13] MEDS: predniSONE 20 MG TABLET 40 MG PO (19:09)
[2022-07-13] MEDS: cephALEXin 500 MG CAPSULE PO (19:09)
[2022-07-13] MEDS: Doxycycline Monohydrate 100 MG CAPSULE PO (19:09)
== END 2022-07-13 19:41 | disposition home or self-care (01) ==
PROVIDERS: Physician Assistant Medical; Emergency Provider Internal Medicine; PCP Internal Medicine
DX: M70.51 Other bursitis of knee, right knee (principal); I10 Essential (primary) hypertension; F17.200 Nicotine dependence, unspecified, uncomplicated; Z79.899 Other long term (current) drug therapy
CPT/HCPCS: 36415; 73562; 80048; 80076; 82077; 83735; 85025; 85652; 86140; 99283; 99284

== ENCOUNTER 2022-08-05 07:09 | Outpatient (REF) | payer OTHER, SELFPAY ==
--- NOTE | ~2022-08-05 | XR_ITS ---
X-ray right knee X-ray AP standing view both knees CLINICAL HISTORY: Pain. COMPARISON: Radiograph of the right knee 07/13/2022. TECHNIQUE: 2 views of the right knee. Single AP standing view of both knees. FINDINGS: Slightly increased anterior soft tissue thickening in the region of the distal quadriceps tendon, patellar and patellar tendon. No acute osseous fractures or malalignment. No significant degenerative changes. No evidence of erosions or chondrocalcinosis. XR/XR knee RT 2V IMPRESSION: Slightly increased anterior soft tissue thickening in the right knee in the region of the distal quadriceps patellar and tendon tendon. Differential considerations is broad, recommend further evaluation with CT or MRI as clinically warranted.
--- NOTE | ~2022-08-05 | XR_ITS ---
X-ray right knee X-ray AP standing view both knees CLINICAL HISTORY: Pain. COMPARISON: Radiograph of the right knee 07/13/2022. TECHNIQUE: 2 views of the right knee. Single AP standing view of both knees. FINDINGS: Slightly increased anterior soft tissue thickening in the region of the distal quadriceps tendon, patellar and patellar tendon. No acute osseous fractures or malalignment. No significant degenerative changes. No evidence of erosions or chondrocalcinosis. XR/XR knee standing BI IMPRESSION: Slightly increased anterior soft tissue thickening in the right knee in the region of the distal quadriceps patellar and tendon tendon. Differential considerations is broad, recommend further evaluation with CT or MRI as clinically warranted.
== END 2022-08-05 07:10 | disposition home or self-care (01) ==
LOC: HO.HOSX 07:09
PROVIDERS: Visit Provider Physician Assistant
DX: M70.41 Prepatellar bursitis, right knee (principal); Z87.81 Personal history of (healed) traumatic fracture; M25.562 Pain in left knee
CPT/HCPCS: 73560; 73565

== ENCOUNTER 2022-10-17 07:44 | Outpatient (REF) | payer OTHER, SELFPAY ==
--- NOTE | ~2022-10-17 | XR_ITS ---
EXAMINATION: XR CLAVICLE, RIGHT CLINICAL INFORMATION: Other specified disorders of bone, shoulder COMPARISON: Right clavicle 08/07/2021 TECHNIQUE: PA and tangential views of the right clavicle. FINDINGS: Plate and screws transfix previously seen right clavicle fracture. Hardware is stable, intact. The fracture clefts is no longer visible. No new fractures are seen. Acromioclavicular joint alignment is anatomic. XR/XR clavicle RT IMPRESSION: ORIF right clavicle fracture with no hardware complication. The fracture cleft is no longer visible.
== END 2022-10-17 07:45 | disposition home or self-care (01) ==
LOC: HO.HOSX 07:44
PROVIDERS: Visit Provider Physician Assistant
DX: S42.001D Fracture of unspecified part of right clavicle, subsequent encounter for fracture with routine healing (principal)
CPT/HCPCS: 73000

== ENCOUNTER 2022-10-17 14:05 | Outpatient (AMB) | payer OTHER, SELFPAY ==
--- NOTE | 2022-10-17 14:21 | MHC.OFFVIS ---
Intake Vital Signs 10/17/22 14:24 Height 6 ft Weight 135 lb BMI 18.3 Intake Visit Reasons: Pre-Op KAMLESH of right clavicle 10/23/22NE Intake Note: Grover is a 37 year old right hand dominant male who presents today for a pre op appointment for his KAMLESH of right clavicle, 10/23/22 NE. Allergies No Known Allergies Allergy (Verified 10/17/22 14:25) HPI Pre-Op KAMLESH of right clavicle 10/23/22NE HPI Details 37-year-old right hand dominant male who presents in the office today for his preoperative history and physical exam prior to a right clavicle removal of hardware to be performed on 10/23/[address] Flores. Patient has no known allergy history. Patient is currently taking, as follows: -Amlodipine 2.5 mg PO daily -Levothyroxine 25 mcg PO daily -Metoprolol succinate ER 100 mg PO daily Patient has a medical history, as follows: -Anxiety -Depression -Hypertension -Hypothyroidism Patient has a surgical history, as follows: -Back surgery Patient has a social history, as follows: -Tobacco; Cigarettes, 1 pack per day, about 20. 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 Review of Systems Const All systems reviewed & are unremarkable except as noted in HPI and below Physical Exam Vital Signs: BMI result Body Mass Index 18.3 Const General: cooperative, healthy appearing, comfortable, no acute distress, well developed, alert and awake Orientation/consciousness: patient oriented x3 HEENT Head: Yes normal to inspection, Yes normocephalic and Yes atraumatic Eyes General: appearance normal, both eyes and all related structures Neck Neck: Yes normal visual inspection and Yes no lymphadenopathy Resp Effort & Inspection: normal respiratory effort and able to speak in complete sentences Cardio Rate: regular rate Peripheral pulses: Peripheral pulses 2+ throughout GI Inspection: Yes normal to inspection Palpation (GI): Soft to palpation Skin General skin exam: no rashes or lesions noted Lesions: no lesions Rashes: no rashes Neuro General: patient oriented x3 Extrem Other: Right clavicle surgical scar well healed. No breakdown. The plate is quite prominant under the skin. Psych Mental Status: mental status grossly normal Assessment & Plan Assessment & Plan (1) Right clavicle fracture: Code(s): S42.001A - Fracture of unspecified part of right clavicle, initial encounter for closed fracture Plan Mr. Catherine is a 37-year-old right hand dominant male who presents in the office today for his preoperative history and physical exam prior to a right clavicle removal of hardware to be performed on 10/23/[address] Flores. Patient has no known allergy history. Patient is currently taking, as follows: -Amlodipine 2.5 mg PO daily -Levothyroxine 25 mcg PO daily -Metoprolol succinate ER 100 mg PO daily Patient has a medical history, as follows: -Anxiety -Depression -Hypertension -Hypothyroidism Patient has a surgical history, as follows: -Back surgery Patient has a social history, as follows: -Tobacco; Cigarettes, 1 pack per day, about 20. I discussed in detail the procedure and what to expect pre and post operatively. We discussed the risks, benefits and alternatives to the surgery as well as the rehabilitation course. The risks; which include, but are not limited to infection, bleeding, nerve injury, ongoing pain, swelling, and stiffness, perioperative risk of injury to bones and soft tissues, and blood clots. I have answered all questions and with their understanding they have consented to move forward with a right clavicle removal of hardware to be performed on 10/23/[address] Chester Flores. Follow up will be at the post operative appointment on 10/28/2022 at 9:15 am, or sooner if needed. X-rays of the left clavicle which were obtained while in the office today and were reviewed by me, Danielle Crocker PA-C, revealed intact orthopedic hardware. Orders: Orders XR clavicle RT Today M89.8X1 - Other specified disorders of bone, shoulder Patient Instructions: Scribed for Danielle Crocker PA-C by Marcelina Mcgee medical laboratory technicians, on 10/17/2022 at 2:06 pm, EST. Coding Level of Care Code Global (47161) Diagnoses Right clavicle fracture S42.001A
[2022-10-17 14:24] VITALS: BMI 18.3
== END 2022-10-17 14:46 | disposition home or self-care (01) ==
PROVIDERS: PCP Internal Medicine; Visit Provider Physician Assistant
DX: S42.001A Fracture of unspecified part of right clavicle, initial encounter for closed fracture (principal)
CPT/HCPCS: 99024

== ENCOUNTER 2022-10-23 06:00 | Day surgery (SDC) | payer OTHER, SELFPAY ==
[2022-10-18 13:59] VITALS: BMI 18.3
--- NOTE | 2022-10-22 08:46 | P.CONAN_ITS ---
Documented by User: Mikki Houston NP 10/22/22 08:47 HPI - Anesthesia Eval Consult details Narrative: 37yo M for Right Removal Orthopedic Hardware of clavicle s/p ORIF 03/2021 with GA-ETT 7 PMFSH Active Problems Active Problems: All Active Problems (Updated 08/07/22 @ 21:47 by Carlos Uribe PA-C) Right clavicle fracture (Acute) Prepatellar bursitis of right knee (Acute) Past Medical History Medical History Anxiety Depression HTN (hypertension) Hypothyroid Family History Family history of problems with anesthesia: No Surgical History Surgical History (Updated 10/18/22 @ 13:54 by Maylin Davies RN) History of back surgery History of open reduction and internal fixation (ORIF) procedure History of Problems with Anesthesia: No Social History Social History Alcohol intake: never Patient Tobacco Use Status: Current everyday Tobacco user Tobacco use type: Cigarette Cigarette Packs Per Day: 1 Cigarettes Per Day: 20.0 Date Education Initiated: 10/23/22 Use of substances other than those prescribed or required for medical reasons: No Are you DNR?: No Advance Directives: No Advance Directives Information Provided: Yes Current occupational status: employed and unemployed 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, 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 Meds Allergies Allergy/AdvReac Type Severity Reaction Status Date / Time No Known Allergies Allergy Verified 10/17/22 14:25 Home Medications Medication Instructions Recorded Confirmed Last Taken Type amlodipine 2.5 mg tablet 1 tab PO DAILY 03/20/21 10/18/22 10/23/22 History levothyroxine 25 mcg tablet 1 tab PO DAILY 03/20/21 10/18/22 10/23/22 History metoprolol succinate 100 mg 1 tab PO DAILY 03/20/21 10/18/22 10/23/22 History tablet,extended release 24 hr Exam Exam Date and Time: October 22, 2022 0846 Height,Weight and Vital Signs: Height 6 ft Weight 61.235 kg Pertinent Lab Results Pertinent Lab Results: Laboratory Tests 07/13/22 07/13/22 17:34 17:34 WBC 14.0 H Hgb 14.3 Hct 42.5 Plt Count 341 Sodium 140 Potassium 4.3 Chloride 106 Carbon Dioxide 24 BUN 15 Creatinine 0.77 Assessment and Plan Assessment Anesthesia Assessment: Chart Reviewed Final Anesthetic Review Family History of Problems with Anesthesia: No History of Problems with Anesthesia: No Documented by User: Isacc Avilez MD 10/23/22 07:18 [facility] Past Medical History Medical History Anxiety Depression HTN (hypertension) Hypothyroid Surgical History Surgical History (Updated 10/18/22 @ 13:54 by Maylin Davies RN) History of back surgery History of open reduction and internal fixation (ORIF) procedure Social History Social History Alcohol intake: never Patient Tobacco Use Status: Current everyday Tobacco user Tobacco use type: Cigarette Cigarette Packs Per Day: 1 Cigarettes Per Day: 20.0 Date Education Initiated: 10/23/22 Use of substances other than those prescribed or required for medical reasons: No Are you DNR?: No Advance Directives: No Advance Directives Information Provided: Yes Current occupational status: employed and unemployed 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, 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 Meds Allergies Allergy/AdvReac Type Severity Reaction Status Date / Time No Known Allergies Allergy Verified 10/17/22 14:25 Home Medications Medication Instructions Recorded Confirmed Last Taken Type amlodipine 2.5 mg tablet 1 tab PO DAILY 03/20/21 10/18/22 10/23/22 History levothyroxine 25 mcg tablet 1 tab PO DAILY 03/20/21 10/18/22 10/23/22 History metoprolol succinate 100 mg 1 tab PO DAILY 03/20/21 10/18/22 10/23/22 History tablet,extended release 24 hr Exam Airway Mallampati Class: II TM Dist: >3cm Neck ROM: Full Heart: rrr Lungs: cta Assessment and Plan Assessment Anesthesia Assessment: Anesthesia Plan Discussed Final Anesthetic Review NPO: Yes ASA Class: II Final Preanesthetic Review: No Changes in Pt Med Stat, Meds/Allgs Chart Revie fri, Consent Obtained/Reviewed and Anes Risks/Benef Reviewed Patient Risk: Low Procedure Risk: Intermediate Anesthetic Plan Anesthetic Plan: GA, Regional Block and Agree w/ Assess. and Plan Disposition: Standard PACU
[2022-10-23 06:17] VITALS: BMI 20.2
[2022-10-23 06:20] VITALS: BP 122/81; PULSE 85; RESP 18; TEMP 36.8; O2SAT 98
[2022-10-23 06:35] VITALS: BMI 20.2
[2022-10-23] MEDS: Lactated Ringers 1,000 ML 100 ML IVCONT (06:37)
--- NOTE | 2022-10-23 07:35 | MHC.SHP ---
Pre-Procedural Eval Section A Date of Service: 10/23/22 The patient is an INPATIENT: No Changes since office visit: No Cold of Flu in the past 2 weeks, No New Medical Problems, No Changes in Medication and No Patient answered all questions The History & Physical has been completed within 30 days and I have reviewed it.: Yes Section B Chief Complaint: Pain due to internal orthopedic prosthetic devices Allergies: Allergies Allergy/AdvReac Type Severity Reaction Status Date / Time No Known Allergies Allergy Verified 10/17/22 14:25 Plan I have reviewed the history and physical and performed a pertinent physical examination on my patient. No changes have occurred unless specified. Time Spent With Patient Time: Total time managing care of this patient today ____ minutes.
--- NOTE | 2022-10-23 08:20 | PM.OP ---
Brief Operative Note Date of Service: 10/23/22 Pre-op diagnosis: Retained ortho hardware right clavicle Post-op diagnosis: same Procedure: KAMLESH right clavicle Implants: none Surgeon: Chester Flores MD Anesthesia: GETA Was an Orange Picker used for this Procedure?: No Estimated blood loss (mL): 5 IV fluids (mL): 500 Pathology: none sent Condition: stable Disposition: PACU
[2022-10-23 08:29] VITALS: BP 108/68; PULSE 74; RESP 16; TEMP 36.4; O2SAT 98
[2022-10-23 08:34] VITALS: BP 111/74; PULSE 75; RESP 16; O2SAT 100
[2022-10-23 08:39] VITALS: BP 114/77; PULSE 76; RESP 16; O2SAT 100
[2022-10-23 08:44] VITALS: BP 116/78; PULSE 75; RESP 18; TEMP 36.6; O2SAT 97
[2022-10-23 08:59] VITALS: BP 124/86; PULSE 75; RESP 18; TEMP 36.4; O2SAT 95
--- NOTE | 2022-10-23 10:37 | P.OP_ITS ---
Operative Note Operative Note Date of Service: 10/23/22 Narrative: Date of Service: 10/23/22 Pre-op diagnosis: Retained ortho hardware right clavicle Post-op diagnosis: same Procedure: KAMLESH right clavicle Implants: none Surgeon: Chester Flores MD Anesthesia: GETA Was an Engraver Apprentice Decorative used for this Procedure?: No Estimated blood loss (mL): 5 IV fluids (mL): 500 Pathology: none sent Condition: stable Disposition: PACU Patient was brought to the operating room and placed in a beach chair position on the surgical table. He was prepped and draped in standard sterile fashion and a time out was called to identify proper site, proper procedure and IV antibiotics per weight were administered. I began by making an incision over the prior, healed, incision. The plate was easily identifiable and the 6 screws were removed without incident. The plate was removed. The screw holes were curretted and the wound was copiously irrigated. The wound was colased with absorbable suture, skin glue and steri strips. Sterile dressings were applied. Local was injected. The pateint was extubated and broughtt to the recovery room in stable condition. There were no known complications.
== END 2022-10-23 09:30 | disposition home or self-care (01) ==
LOC: HO.SSS 06:01
PROVIDERS: PCP Internal Medicine; Visit Provider Orthopaedic Surgery
PROC: (CPT 20680; principal; 2022-10-23 07:30)
DX: T84.84XA Pain due to internal orthopedic prosthetic devices, implants and grafts, initial encounter (principal); G89.18 Other acute postprocedural pain; M25.511 Pain in right shoulder; Y79.2 Prosthetic and other implants, materials and accessory orthopedic devices associated with adverse incidents; I10 Essential (primary) hypertension; E03.9 Hypothyroidism, unspecified; F32.A Depression, unspecified; F41.1 Generalized anxiety disorder; F17.210 Nicotine dependence, cigarettes, uncomplicated; Z79.899 Other long term (current) drug therapy; Z98.890 Other specified postprocedural states
CPT/HCPCS: 20680; J0690; J1100; J1885; J2405; J2795

== ENCOUNTER → 2022-10-23 06:00 | Outpatient (BNV) | payer OTHER, SELFPAY | PROVIDERS: PCP Internal Medicine; Visit Provider Orthopaedic Surgery | DX: T84.84XA Pain due to internal orthopedic prosthetic devices, implants and grafts, initial encounter (principal) | CPT/HCPCS: 20670 ==

== ENCOUNTER 2022-10-28 08:24 | Outpatient (REF) | payer OTHER, SELFPAY ==
--- NOTE | ~2022-10-28 | XR_ITS ---
EXAMINATION: XR CLAVICLE, RIGHT CLINICAL INFORMATION: Other specified disorders of bone, shoulder COMPARISON: Right clavicle 10/17/2022 TECHNIQUE: PA and tangential views of the right clavicle. FINDINGS: There has been interval removal of previously seen plate and screws transfixing right clavicle fracture. No displaced fracture is appreciated. Acromioclavicular joint is stable. XR/XR clavicle RT IMPRESSION: There has been interval removal of previously seen plate and screws transfixing right clavicle fracture. No displaced fracture is appreciated.
== END 2022-10-28 08:25 | disposition home or self-care (01) ==
LOC: HO.HOSX 08:24
PROVIDERS: Visit Provider Physician Assistant
DX: M89.8X1 Other specified disorders of bone, shoulder (principal); Z98.890 Other specified postprocedural states
CPT/HCPCS: 73000

== ENCOUNTER 2022-10-28 09:27 | Outpatient (AMB) | payer OTHER, SELFPAY ==
--- NOTE | 2022-10-28 09:36 | A.OFFVIS_ITS ---
Intake Vital Signs 10/28/22 09:40 Height 5 ft 11 in Weight 145 lb BMI 20.2 Handedness Right Intake Visit Reasons: PO KAMLESH of right clavicle 10/23/22NE Intake Note: Grover is a 37 year old right hand dominant male who presents today for a post op appointment for his KAMLESH of right clavicle, 10/23/22 NE. Patient reports some discomfort near the incision area. Denies numbness and tingling. Allergies No Known Allergies Allergy (Verified 10/28/22 09:40) HPI PO KAMLESH of right clavicle 10/23/22NE HPI Details 37-year-old right hand dominant male who presents in the office today 5 days status post right clavicle removal of hardware, which was performed on 10/23/[address] Flores. The patient reports some discomfort near the incision site. He denies numbness or tingling. 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 Surrounding erythema with small papuals that are itchy. No signs of infection. Full shoulder ROM in all planes. NVI. Assessment & Plan Assessment & Plan (1) Status post hardware removal: Comment: Right clavicle KAMLESH 10/23/2022 NE Code(s): Z98.890 - Other specified postprocedural states Plan Mr. Catherine is a 37-year-old right hand dominant male who presents in the office today 5 days status post right clavicle removal of hardware, which was performed on 10/23/[address] Flores. The patient reports some discomfort near the incision site. He denies numbness or tingling. The patient will continue to keep the incision site clean, dry, and intact. He is able to shower and pat dry. I sent a prescription for hydrocortisone cream to the pharmacy while in the office today. He understand he is not to apply this to the incision site but around it. He will follow up in 1 weeks for a wound check, or sooner if needed. X-rays of the right clavicle which were obtained while in the office today and were reviewed by me, Danielle Crocker PA-C, revealed successful removal of hardware. Orders: Orders XR clavicle RT Today M89.8X1 - Other specified disorders of bone, shoulder Medications: New hydrocortisone 2.5% 1 appl topical DAILY PRN 20 grams 0RF skin irritation Coding Level of Care Code Global (17050) Diagnoses Status post hardware removal Z98.890
[2022-10-28 09:40] VITALS: BMI 20.2
== END 2022-10-28 10:08 | disposition home or self-care (01) ==
PROVIDERS: PCP Internal Medicine; Visit Provider Physician Assistant
DX: Z98.890 Other specified postprocedural states (principal)
CPT/HCPCS: 99024

== ENCOUNTER 2022-11-07 13:03 | Outpatient (AMB) | payer OTHER, SELFPAY ==
--- NOTE | 2022-11-07 13:37 | MHC.OFFVIS ---
Intake Intake Visit Reasons: PO KAMLESH of right clavicle 10/23/22NE Allergies No Known Allergies Allergy (Verified 10/28/22 09:40) HPI PO KAMLESH of right clavicle 10/23/22NE HPI Details 37-year-old right hand dominant male male who presents in the office today 2 weeks status post right clavicle removal of hardware, which was performed on 10/23/[address] Flores[address] 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 No signs of infection. Does have a small papule type rash from what looks like the skin prep. Full ROM in all planes. NVI. Assessment & Plan Assessment & Plan (1) Status post hardware removal: Comment: Right clavicle KAMLESH 10/23/2022 NE Code(s): Z98.890 - Other specified postprocedural states Plan Mr. Catherine is a 37-year-old right hand dominant male male who presents in the office today 2 weeks status post right clavicle removal of hardware, which was performed on 10/23/[address] Flores. He can continue to use the hydrocortisone cream PRN for itching. He may also apply antibiotic ointment PRN for irritated skin. He was instructed to keep the ointments away from the incision site. Follow up will be in 2 weeks for a wound check, or sooner if needed. Patient Instructions: Scribed for Danielle Crocker PA-C by Marcelina Mcgee medical oncology physician, on 11/07/2022 at 1:11 pm, EST. Coding Level of Care Code Global (27040) Diagnoses Status post hardware removal Z98.890
== END 2022-11-07 13:23 | disposition home or self-care (01) ==
PROVIDERS: PCP Internal Medicine; Visit Provider Physician Assistant
DX: Z98.890 Other specified postprocedural states (principal)
CPT/HCPCS: 99024

== ENCOUNTER → 2022-11-07 13:03 | Outpatient (BNVA) | payer OTHER, SELFPAY | PROVIDERS: PCP Internal Medicine; Visit Provider Physician Assistant ==

== ENCOUNTER 2022-11-21 14:18 | Outpatient (AMB) | payer OTHER, SELFPAY ==
--- NOTE | 2022-11-21 14:20 | MHC.OFFVIS ---
Intake Vital Signs 11/21/22 14:21 Height 5 ft 11 in Weight 145 lb BMI 20.2 Intake Visit Reasons: PO KAMLESH of right clavicle 10/23/22NE Intake Note: Grover is a 37 year old right hand dominant male who presents today for a post operative wound check s/p Right Clavicle KAMLESH 10/23/22. Patient reports that he is doing well with no concerns. Allergies No Known Allergies Allergy (Verified 10/28/22 09:40) HPI PO KAMLESH of right clavicle 10/23/22NE HPI Details Groevr is a 37 year old man who presents ~1 month S/P right clavicle KAMLESH. He is here for a wound check. He says he is doing well today without any complaints. He denies any fever or chills. 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 Review of Systems Const All systems reviewed & are unremarkable except as noted in HPI and below Physical Exam Vital Signs: BMI result Body Mass Index 20.2 Const General: no acute distress, alert and awake Orientation/consciousness: patient oriented x3 HEENT Head: Yes normocephalic and Yes atraumatic Eyes EOM: EOMs intact bilaterally Resp Effort & Inspection: normal respiratory effort and able to speak in complete sentences Cardio Jugular venous distension: no JVD Skin General skin exam: turgor normal Rashes: no rashes Neuro General: patient oriented x3 Extrem Other: Right Clavicle: Incision C/D/I Psych Appearance: grossly normal Affect: normal affect Attitude: cooperative Assessment & Plan Assessment & Plan (1) Status post hardware removal: Comment: Right clavicle KAMLESH 10/23/2022 NE Code(s): Z98.890 - Other specified postprocedural states Plan: This is a 37 year old man S/P right clavicle KAMLESH, DOS: 8/9/23. He is doing well, with no pain or evidence of infection. I recommend he continue activity as tolerated. He can follow up prn. (2) Right clavicle fracture: Code(s): S42.001A - Fracture of unspecified part of right clavicle, initial encounter for closed fracture Plan Scribed for Chester Flores MD by Angus Bowen, medical receptionist assistant, on 11/21/22 at 2:35 PM, EST. Coding Level of Care Code Global (71728) Diagnoses Status post hardware removal Z98.890 Right clavicle fracture S42.001A
[2022-11-21 14:21] VITALS: BMI 20.2
== END 2022-11-21 14:54 | disposition home or self-care (01) ==
PROVIDERS: PCP Internal Medicine; Visit Provider Orthopaedic Surgery
DX: Z98.890 Other specified postprocedural states (principal); S42.001A Fracture of unspecified part of right clavicle, initial encounter for closed fracture
CPT/HCPCS: 99024

== ENCOUNTER → 2022-11-21 14:18 | Outpatient (BNVA) | payer OTHER, SELFPAY | PROVIDERS: PCP Internal Medicine; Visit Provider Orthopaedic Surgery ==

== ENCOUNTER 2023-08-10 18:08 | Emergency (ER) | payer OTHER, SELFPAY ==
--- NOTE | ~2023-08-10 | CT_ITS ---
EXAMINATION: THORACIC SPINE CT WITH CONTRAST LUMBAR SPINE CT WITH CONTRAST CLINICAL INFORMATION: Left leg numb. Trauma. COMPARISON: None. TECHNIQUE: Multidetector volumetric imaging was obtained through the thoracic and lumbar spine following intravenous administration of 99 mL Omnipaque 350. Multiplanar reconstructed images in coronal and sagittal orientations were submitted. This CT examination was performed using dose optimization techniques as appropriate, variously including the following: *Automated exposure control *Adjustment of mA and/or kV according to patient size (this includes techniques or standardized protocols for targeted exams where dose is matched to indication/reason for exam; i.e. extremities or head) *Use of iterative reconstruction technique DOSE: 1018 mGy-cm FINDINGS: Of note, there are 12 rib-bearing thoracic vertebral bodies. There is are 4 lumbar type vertebral bodies with a transitional, sacralized vertebral body at the lumbosacral junction which will be referred to as L5. Vertebral body heights are normal. No fractures of the vertebral bodies or posterior elements in the thoracic and lumbar spine. Vertebral alignment is normal. No subluxation. In the thoracic spine, there is mild multilevel degenerative disease characterized primarily by loss of vertebral disc height and endplate osteophytes. This is most notable at T9-T10. Mild multilevel facet arthropathy. No appreciable central canal or neural foraminal encroachment. Paraspinal soft tissues are normal in the thoracic region without acute findings. Imaged lung parenchyma appears clear aside from mild dependent atelectasis. In the lumbar spine, there is mild to moderate degenerative disc disease at L3-L4 and L4-L5 with loss of vertebral disc height, endplate osteophytes, and vacuum disc phenomenon. These findings are symmetric to the right. There is a right paracentral disc protrusion at the L1-L2 level which produces at least mild central canal stenosis. There is a diffuse disc bulge at L3-L4 with a right paracentral disc protrusion that contributes to significant mass effect upon the traversing right L4 nerve root in the subarticular zone. There is a disc bulge at L4-L5. Right foraminal disc osteophyte complex contributes to moderate right neural foraminal impingement (right L4 nerve root) along with facet osteophytes. No acute soft tissue abnormalities are identified in the lumbar spine paraspinal soft tissues. There is mild wall thickening of the bladder which could be due to cystitis, though is not specific. CT/CT thoracic spine w IV con IMPRESSION: 1. No acute abnormalities are identified in the thoracic and lumbar spine. 2. 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 3. Mild to moderate degenerative disc disease in the lumbar spine, most notably at L3-L4 and L4-L5. A right paracentral disc protrusion at L3-L4 contributes to mass effect upon the traversing right L4 nerve root in the subarticular zone. 4. Right foraminal disc osteophyte complex at L4-L5 contributes to moderate right neural foraminal impingement. 5. Mild wall thickening of the bladder which could be due to cystitis, though is not specific.
[2023-08-10 18:30] VITALS: BP 158/105; PULSE 116; RESP 20; TEMP 36.8; O2SAT 95; BMI 20.2
--- NOTE | 2023-08-10 18:54 | ED_ITS ---
HPI - General Adult General Chief complaint: Back Pain/Injury Stated complaint: lower back inj no feeling in left leg Time Seen by Provider: 08/10/23 20:38 Source: patient Mode of arrival: ambulatory Limitations: no limitations History of Present Illness HPI narrative: Patient apparently while jumping on the trampoline fell yesterday on his back very hard since then complaining of pain in the lower back with bruising feel that left leg is slightly numb no weakness otherwise no bladder or bowel involvement Related Data Home Medications ?Medication ?Instructions ?Recorded ?Confirmed amlodipine 2.5 mg tablet 1 tab PO DAILY 03/20/21 10/18/22 levothyroxine 25 mcg tablet 1 tab PO DAILY 03/20/21 10/18/22 metoprolol succinate 100 mg 1 tab PO DAILY 03/20/21 10/18/22 tablet,extended release 24 hr Previous Rx's ?Medication ?Instructions ?Recorded oxycodone-acetaminophen 5 mg-325 1 tab PO Q8H PRN pain 7 days #21 10/23/22 mg tablet (Percocet) tabs hydrocortisone 2.5 % topical cream 1 appl topical DAILY PRN skin 10/28/22 irritation #20 grams ibuprofen 600 mg tablet 600 mg PO Q6H PRN fever or pain 08/11/23 #30 tabs Allergies Allergy/AdvReac Type Severity Reaction Status Date / Time No Known Allergies Allergy Verified 08/10/23 18:34 Review of Systems 2 Review of Systems: Yes all other systems are reviewed and are negative PMFSH Past Medical History Medical History Anxiety Depression Hypothyroid HTN (hypertension) Surgical History History of open reduction and internal fixation (ORIF) procedure History of back surgery Social History Social History Alcohol intake: current Alcohol intake frequency: 3 or more drinks per day Alcohol type: beer Patient Tobacco Use Status: Current everyday Tobacco user Tobacco use type: Cigarette Cigarette Packs Per Day: 1 Cigarettes Per Day: 20.0 Smoked in Last 30 Days: Yes Use of substances other than those prescribed or required for medical reasons: Yes Substance Use Type: Marijuana Substance Use Frequency: Occasionally Advance Directives: No Advance Directives Information Provided: No Do you have a plan to hurt others: No Plan Current occupational status: employed and unemployed 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 Oriented X3. No acute distress. Eyes: PERRLA, No Nystagmus ENT: Pharynx normal. Oral Mucosa moist Neck: Normal inspection. Neck supple. CVS: Normal heart rate and rhythm. Pulses normal. Respiratory: No respiratory distress. Equal air entry bilateral, no wheezing/rales/rhonchi Abdomen: Soft and nontender. Bowel sounds are present, no mass palpable, no CVA tenderness Skin: Skin warm and dry. Normal skin color. Bruising of the T10-T11 area Extremities: No lower extremity edema. No calf tenderness Neuro: Oriented X 3. No motor deficit. Apparent known dermatomal sensory deficits in both upper and lower extremities No cerebellar signs , cranial nerves II-XII intact Course Course Course Narrative: 38-year-old male presents for evaluation of severe lower back pain. He reports that he is unable to feel his left leg. He is ambulatory but has significant pain. Plan for labs, CT lumbar and thoracic spine with IV contrast. Medications Administered Discontinued Medications Generic Name Dose Route Start Last Admin Trade Name Freq PRN Reason Stop Dose Admin Iohexol 100 ml 08/10/23 20:25 08/10/23 20:26 Iohexol 350 Mg/Ml 100 Ml Infus..Btl IV 08/10/23 20:26 100 ml ONCE ONE Administration Medical Decision Making Medical Decision Making [facility] Narrative: Patient s/p mechanical injury to the back with bilateral paresthesia during the upper extremities no focal weakness noticed patient ambulatory. Patient labs are stable CT scan negative Likely has spinl cord stunned from the injury advised to follow a neurologist or report to the ER if increased weakness Differential Diagnosis Differential Diagnoses: The differential diagnosis associated with the presentation includes Lab Data [facility] Lab Attestation statement: I reviewed the patient's lab results. 08/10/23 19:17 08/10/23 19:17 Labs: Lab Results 08/10/23 Range/Units 19:17 WBC 11.0 H (4.8-10.8) X10*3/uL RBC 4.67 (4.60-5.80) X10*6/uL Hgb 14.9 (14.0-18.0) g/dl Hct 41.5 L (42.0-52.0) % MCV 88.9 (80.0-98.0) fL MCH 31.9 (27.0-33.0) pg MCHC 35.9 (31.0-36.0) g/dl RDW 12.1 (11.0-16.0) % Plt Count 400 (160-400) X10*3/uL MPV 8.1 L (9.4-12.4) fL Immature Gran % (Auto) 0.3 (0.0-0.4) % Neut % (Auto) 63.7 (45-73) % Lymph % (Auto) 25.1 (20-40) % Douglas % (Auto) 9.4 (2-11) % Eos % (Auto) 0.8 (0-4) % Baso % (Auto) 0.7 (0-2) % Lymph # (Auto) 2.8 (1.2-4.9) X10*3/uL Douglas # (Auto) 1.0 (0.1-1.2) X10*3/uL Eos # (Auto) 0.1 (0.0-0.4) X10*3/uL Baso # (Auto) 0.1 (0.0-0.2) X10*3/uL Abs Immat Gran (auto) 0.03 (0.00-0.03) X10*3/uL Absolute Neuts (auto) 7.0 (2.0-8.3) x10*3/uL Absolute Nucleated RBC 0.000 (0.0-0.012) X10*3/uL Nucleated RBC % (auto) 0.0 (0.0-0.2) /100WBC PT 10.3 L (11.1-13.3) SEC INR 0.8 L (0.9-1.1) Sodium 145 (135-145) mmol/L Potassium 3.9 (3.3-5.1) mmol/L Chloride 107 (96-108) mmol/L Carbon Dioxide 24 (22-29) mmol/L Anion Gap 18 (12-20) BUN 15 (9-16) mg/dL Creatinine 0.76 (0.5-1.4) mg/dL Estim Creat Clear Calc 121.3 Estimated GFR > 60 Random Glucose 87 (60-115) mg/dL Calcium 9.3 D (8.4-10.2) mg/dL Total Bilirubin 0.2 (0.0-1.0) mg/dL AST 50 H (5-37) U/L ALT 25 (0-40) U/L Alkaline Phosphatase 73 (39-117) U/L Total Protein 8.3 H (6.5-8.0) g/dL Albumin 5.1 H (3.5-5.0) g/dL Lipase 50 (8-78) U/L Independent Interpretation I performed an independent interpretation of an: CT Scan Radiology Impression Discussion of test interpretation with radiology: I have reviewed the radiologist's reading. Radiologist Impression: CT/CT thoracic spine w IV con IMPRESSION: 1. No acute abnormalities are identified in the thoracic and lumbar spine. 2. 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 3. Mild to moderate degenerative disc disease in the lumbar spine, most notably at L3-L4 and L4-L5. A right paracentral disc protrusion at L3-L4 contributes to mass effect upon the traversing right L4 nerve root in the subarticular zone. 4. Right foraminal disc osteophyte complex at L4-L5 contributes to moderate right neural foraminal impingement. 5. Mild wall thickening of the bladder which could be due to cystitis, though is not specific. Discharge Plan Discharge Clinical Impression: Back pain Patient Disposition: Home, Self-Care Instructions: Acute Low Back Pain (ED) Additional Instructions: Rest at home Take pain medication as advised for severe pain Apply ice Report to the ER if any leg weakness/bladder bowel involvement Follow with neurologist Prescriptions: New ibuprofen 600 mg tablet 600 mg PO Q6H PRN (Reason: fever or pain) Qty: 30 0RF No Action metoprolol succinate 100 mg tablet extended release 24 hr 1 tab PO DAILY amlodipine 2.5 mg tablet 1 tab PO DAILY levothyroxine 25 mcg tablet 1 tab PO DAILY oxycodone-acetaminophen [Percocet] 5-325 mg tablet 1 tab PO Q8H PRN (Reason: pain) 7 Days Qty: 21 0RF Rx Instructions: Partial Fill upon patient request. hydrocortisone 2.5 % cream 1 appl topical DAILY PRN (Reason: skin irritation) Qty: 20 0RF Referrals: Betty Geiger MD [Physician] - Interventions: ED Discharge Assessment Last Done: 08/11/23 00:43 Discharge Date/Time: 08/11/23 00:44 Print Language: Arabic
[2023-08-10 19:20] LABS: MANUAL DIFF FLAG NO
[2023-08-10 19:22] LABS: Basophils Absolute Auto 0.1 X10*3/uL (0.0-0.2); Basophils Percent Auto 0.7 % (0-2); Eosinophils Absolute Auto 0.1 X10*3/uL (0.0-0.4); Eosinophils Percent Auto 0.8 % (0-4); Hematocrit 41.5 % (42.0-52.0); Hemoglobin 14.9 g/dl (14.0-18.0); Imm Gran Abs Auto 0.03 X10*3/uL (0.00-0.03); Imm Gran Pct Auto 0.3 % (0.0-0.4); Lymphocytes Absolute Auto 2.8 X10*3/uL (1.2-4.9); Lymphocytes Percent Auto 25.1 % (20-40); Mean Corpuscular HGB Conc 35.9 g/dl (31.0-36.0); Mean Corpuscular Hemoglobin 31.9 pg (27.0-33.0); Mean Corpuscular Volume 88.9 fL (80.0-98.0); Mean Platelet Volume 8.1 fL (9.4-12.4); Monocytes Percent Auto 9.4 % (2-11); Neutrophils Percent Auto 63.7 % (45-73); Platelet Count 400 X10*3/uL (160-400); Red Blood Count 4.67 X10*6/uL (4.60-5.80); Red Cell Distribution Width 12.1 % (11.0-16.0)
[2023-08-10 19:27] LABS: INTERNATIONAL NORM RATIO 0.8 (0.9-1.1); Prothrombin Time 10.3 SEC (11.1-13.3)
[2023-08-10 19:46] LABS: Alanine Aminotransferase 25 U/L (0-40); Albumin Level 5.1 g/dL (3.5-5.0); Alkaline Phosphatase 73 U/L (39-117); Anion Gap 18 (12-20); Aspartate Amino Transferase 50 U/L (5-37); Bilirubin Total 0.2 mg/dL (0.0-1.0); Blood Urea Nitrogen 15 mg/dL (9-16); Calcium 9.3 mg/dL (8.4-10.2); Carbon Dioxide 24 mmol/L (22-29); Chloride 107 mmol/L (96-108); Creatinine Clr Calc Pharmacy 121.3; Estimated Glomerular Filt Rate > 60; Glucose Random 87 mg/dL (60-115); Lipase 50 U/L (8-78); Potassium 3.9 mmol/L (3.3-5.1); Sodium 145 mmol/L (135-145); Total Protein 8.3 g/dL (6.5-8.0)
[2023-08-10] MEDS: iohexoL 350 MG/ML 100 ML INFUS..BTL IV (20:26)
[2023-08-10 23:28] VITALS: BP 138/82; PULSE 90; RESP 16; TEMP 37.3; O2SAT 96
[2023-08-11 00:43] VITALS: BP 135/86; PULSE 84; RESP 16; TEMP 36.7; O2SAT 98
== END 2023-08-11 00:44 | disposition home or self-care (01) ==
PROVIDERS: Physician Assistant; Emergency Provider Internal Medicine; PCP Internal Medicine
DX: M54.50 Low back pain, unspecified (principal); I10 Essential (primary) hypertension; Z91.81 History of falling
CPT/HCPCS: 36415; 72129; 72132; 80053; 83690; 85025; 85610; 99284; Q9967

== ENCOUNTER 2023-12-02 00:02 | Emergency (ER) | payer MEDICAID, SELFPAY ==
[2023-12-02 00:17] VITALS: BP 129/77; PULSE 101; RESP 18; TEMP 37.3; O2SAT 95; BMI 18.3
--- NOTE | 2023-12-02 00:19 | MHC.EDTECH ---
Patient BIBA,security called to assist for changeover, belongings list completed and locked in the closet/shelf C4 patient has $198.50 cents Reddy security witnessed. Patient urinate 600MLS in urinal,patient is very unsteady on his feet at this time
[2023-12-02 00:48] LABS: Amphetamine Screen Urine Not Detected (Not Detect); Barbiturates, Urine Not Detected (Not Detect); Benzodiazepines Screen Urine Not Detected (Not Detect); Buprenorphine Scr Not Detected (Not Detect); Cannabinoid Screen Urine Not Detected (Not Detect); Cocaine Screen Urine Not Detected (Not Detect); Fentanyl, urine Not Detected (Not Detect); Methadone Screen, Urine Not Detected (Not Detect); Opiate Screen Urine Not Detected (Not Detect); Oxycodone Screen Urine Not Detected (Not Detect); Phencyclidine Screen Urine Not Detected (Not Detect)
--- NOTE | 2023-12-02 00:50 | ED.ALCOHOL ---
HPI - Alcohol General Chief Complaint: ETOH/Substance Use Stated Complaint: ETOH Time Seen by Provider: 12/02/23 00:17 Source: patient Mode of arrival: EMS Limitations: no limitations History of Present Illness ED Provider: xochitl LATHAM narrative: Patient was found drunk in the bar unable to ambulate denied any other substance abuse no depression or SI says that he took his sleeping pill also Related Data Home Medications ?Medication ?Instructions ?Recorded ?Confirmed amlodipine 2.5 mg tablet 1 tab PO DAILY 03/20/21 10/18/22 levothyroxine 25 mcg tablet 1 tab PO DAILY 03/20/21 10/18/22 metoprolol succinate 100 mg 1 tab PO DAILY 03/20/21 10/18/22 tablet,extended release 24 hr Previous Rx's ?Medication ?Instructions ?Recorded oxycodone-acetaminophen 5 mg-325 1 tab PO Q8H PRN pain 7 days #21 10/23/22 mg tablet (Percocet) tabs hydrocortisone 2.5 % topical cream 1 appl topical DAILY PRN skin 10/28/22 irritation #20 grams ibuprofen 600 mg tablet 600 mg PO Q6H PRN fever or pain 08/11/23 #30 tabs Allergies Allergy/AdvReac Type Severity Reaction Status Date / Time No Known Allergies Allergy Verified 12/02/23 00:24 Review of Systems Review of Systems: Yes all other systems are reviewed and are negative PMFSH Past Medical History Medical History Anxiety Depression Hypothyroid HTN (hypertension) Surgical History History of open reduction and internal fixation (ORIF) procedure History of back surgery Social History Social History Alcohol intake: current Alcohol intake frequency: 3 or more drinks per day Alcohol type: beer Patient Tobacco Use Status: Current everyday Tobacco user Tobacco use type: Cigarette Cigarette Packs Per Day: 1 Cigarettes Per Day: 20.0 Substance Use Type: Marijuana Do you have a plan to hurt others: No Plan Current occupational status: employed and unemployed 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 Oriented X3. No acute distress. ETOH + Eyes: PERRLA, No Nystagmus ENT: Pharynx normal. Oral Mucosa moist Neck: Normal inspection. Neck supple. CVS: Normal heart rate and rhythm. Pulses normal. Respiratory: No respiratory distress. Equal air entry bilateral, no wheezing/rales/rhonchi Abdomen: Soft and nontender. Bowel sounds are present, no mass palpable, no CVA tenderness Skin: Skin warm and dry. Normal skin color. Normal skin turgor. Eczematous lesions on lower extremity on the back Extremities: No lower extremity edema. No calf tenderness Neuro: Oriented X 3. No motor deficit. No sensory deficit.No cerebellar signs , cranial nerves II-XII intact Medical Decision Making Lab Data MDM Lab Attestation statement: I reviewed the patient's lab results. Labs: Lab Results 12/02/23 Range/Units 00:33 Urine Opiates Screen Not Detected (Not Detect) Ur Buprenorphine Scrn Not Detected (Not Detect) ng/mL Ur Oxycodone Screen Not Detected (Not Detect) ng/mL Urine Methadone Screen Not Detected (Not Detect) ng/mL Urine Fentanyl Screen Not Detected (Not Detect) Ur Barbiturates Screen Not Detected (Not Detect) Ur Phencyclidine Scrn Not Detected (Not Detect) Ur Amphetamines Screen Not Detected (Not Detect) U Benzodiazepines Scrn Not Detected (Not Detect) Urine Cocaine Screen Not Detected (Not Detect) U Marijuana (THC) Screen Not Detected (Not Detect) Discharge Plan Discharge Clinical Impression: Alcoholic intoxication Patient Disposition: Still a Patient Prescriptions: No Action metoprolol succinate 100 mg tablet extended release 24 hr 1 tab PO DAILY amlodipine 2.5 mg tablet 1 tab PO DAILY levothyroxine 25 mcg tablet 1 tab PO DAILY oxycodone-acetaminophen [Percocet] 5-325 mg tablet 1 tab PO Q8H PRN (Reason: pain) 7 Days Qty: 21 0RF Rx Instructions: Partial Fill upon patient request. ibuprofen 600 mg tablet 600 mg PO Q6H PRN (Reason: fever or pain) Qty: 30 0RF hydrocortisone 2.5 % cream 1 appl topical DAILY PRN (Reason: skin irritation) Qty: 20 0RF Print Language: Ukrainian
[2023-12-02 01:53] LABS: MANUAL DIFF FLAG NO
[2023-12-02 01:56] LABS: Basophils Absolute Auto 0.1 X10*3/uL (0.0-0.2); Basophils Percent Auto 0.8 % (0-2); Eosinophils Absolute Auto 0.4 X10*3/uL (0.0-0.4); Eosinophils Percent Auto 5.3 % (0-4); Hematocrit 41.4 % (42.0-52.0); Hemoglobin 14.4 g/dl (14.0-18.0); Imm Gran Abs Auto 0.03 X10*3/uL (0.00-0.03); Imm Gran Pct Auto 0.5 % (0.0-0.4); Lymphocytes Absolute Auto 2.2 X10*3/uL (1.2-4.9); Lymphocytes Percent Auto 32.6 % (20-40); Mean Corpuscular HGB Conc 34.8 g/dl (31.0-36.0); Mean Corpuscular Hemoglobin 31.9 pg (27.0-33.0); Mean Corpuscular Volume 91.8 fL (80.0-98.0); Mean Platelet Volume 8.1 fL (9.4-12.4); Monocytes Absolute Auto 0.7 X10*3/uL (0.1-1.2); Monocytes Percent Auto 11.2 % (2-11); Neutrophils Absolute Auto 3.3 x10*3/uL (2.0-8.3); Neutrophils Percent Auto 49.6 % (45-73); Platelet Count 368 X10*3/uL (160-400); Red Blood Count 4.51 X10*6/uL (4.60-5.80); Red Cell Distribution Width 11.9 % (11.0-16.0); White Blood Count 6.6 X10*3/uL (4.8-10.8)
[2023-12-02 02:10] LABS: Alanine Aminotransferase 19 U/L (0-40); Albumin Level 4.2 g/dL (3.5-5.0); Alkaline Phosphatase 62 U/L (39-117); Anion Gap 15 (12-20); Aspartate Amino Transferase 28 U/L (5-37); Bilirubin Total 0.1 mg/dL (0.0-1.0); Blood Urea Nitrogen 14 mg/dL (9-16); Carbon Dioxide 24 mmol/L (22-29); Chloride 110 mmol/L (96-108); Creatinine Clr Calc Pharmacy 105.6; Estimated Glomerular Filt Rate > 60; Ethanol 400 mg/dL; Glucose Random 105 mg/dL (60-115); Magnesium 2.4 mg/dL (1.6-2.6); Potassium 4.3 mmol/L (3.3-5.1); Sodium 145 mmol/L (135-145); Total Protein 7.3 g/dL (6.5-8.0)
[2023-12-02 02:24] VITALS: BP 134/84; PULSE 84; RESP 18; TEMP 36.7; O2SAT 97
[2023-12-02 03:38] VITALS: BP 134/84; PULSE 84; RESP 18; TEMP 36.7; O2SAT 97
== END 2023-12-02 03:35 | disposition home or self-care (01) ==
PROVIDERS: Emergency Provider Internal Medicine; PCP Internal Medicine
DX: F10.129 Alcohol abuse with intoxication, unspecified (principal); Y90.9 Presence of alcohol in blood, level not specified; Z79.899 Other long term (current) drug therapy; Z51.81 Encounter for therapeutic drug level monitoring
CPT/HCPCS: 36415; 80053; 80307; 83735; 85025; 99284

== ENCOUNTER 2024-10-02 23:43 | Emergency (ER) | payer SELFPAY ==
[2024-10-02 23:51] VITALS: PULSE 77; O2SAT 96
[2024-10-02 23:52] VITALS: BP 167/99; PULSE 100; RESP 15; TEMP 37.1; O2SAT 100; BMI 19.5
--- NOTE | 2024-10-03 00:24 | PC.NURSE ---
mother here to retrieve pt per MD Bacon's request. walked out with mother and security
--- NOTE | 2024-10-03 00:28 | PC.NURSE ---
pts mother Ilsa picked up pt. d/c education done by MD Roca witnessed by this RN. Security Lauren and this RN spoke with Ilsa mom upon d/c and pt ambulated with steady gait out of department.
--- NOTE | 2024-10-03 00:37 | ED.GENADULT ---
HPI - General Adult General Chief complaint: ETOH/Substance Use Stated complaint: ETOH Time Seen by Provider: 10/03/24 00:00 History of Present Illness ED Provider: Abelino LATHAM narrative: The patient is a 39-year-old male who was brought to the hospital by ambulance. He has been at a bar. He has been drinking alcohol. He apparently ran out of the bar into the street. He was walking around car in traffic. An ambulance was called because of his erratic behavior. He was not injured. He was brought to the hospital for evaluation. Here the patient admits to drinking alcohol. He says that he was feeling impulsive which is why he walked into the traffic but he says he was not doing it because he was suicidal. He does not feel suicidal. He admits to being intoxicated. He does not wish to be in the emergency room. He is willing to wait for his mother to pick him up. He denies injuries. He denies using anything other than alcohol. He denies any illness. Related Data Home Medications ?Medication ?Instructions ?Recorded ?Confirmed amlodipine 2.5 mg tablet 1 tab PO DAILY 03/20/21 10/18/22 levothyroxine 25 mcg tablet 1 tab PO DAILY 03/20/21 10/18/22 metoprolol succinate 100 mg 1 tab PO DAILY 03/20/21 10/18/22 tablet,extended release 24 hr Previous Rx's ?Medication ?Instructions ?Recorded oxycodone-acetaminophen 5 mg-325 1 tab PO Q8H PRN pain 7 days #21 10/23/22 mg tablet (Percocet) tabs hydrocortisone 2.5 % topical cream 1 appl topical DAILY PRN skin 10/28/22 irritation #20 grams ibuprofen 600 mg tablet 600 mg PO Q6H PRN fever or pain 08/11/23 #30 tabs Allergies Allergy/AdvReac Type Severity Reaction Status Date / Time No Known Allergies Allergy Verified 10/02/24 23:59 Review of Systems Review of Systems: Yes all other systems are reviewed and are negative [facility] Past Medical History Medical History Anxiety Depression Hypothyroid HTN (hypertension) Surgical History History of open reduction and internal fixation (ORIF) procedure History of back surgery Social History Social History Alcohol intake: current Alcohol intake frequency: 3 or more drinks per day Alcohol type: beer and hard liquor Patient Tobacco Use Status: Current everyday Tobacco user Tobacco use type: Cigarette Cigarette Packs Per Day: 1 Cigarettes Per Day: 20.0 Substance Use Type: Marijuana Advance Directives: No Advance Directives Information Provided: Yes Do you have a plan to hurt others: No Plan Current occupational status: employed and unemployed 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 He is alert but seems intoxicated. He has a mild slurring of his words and seems mildly unsteady on his feet. He does not appear acutely ill. He does not appear injured. HENMT Other: Face is symmetrical. Mucous membranes moist. Eyes Other: Pupils are round equal, conjunctivae are clear Neck Neck: Yes normal visual inspection and Yes full ROM Resp Effort & Inspection: normal respiratory effort Auscultation: clear to auscultation bilaterally Cardio Rate: regular rate Rhythm: regular rhythm Heart sounds: S1 normal heart sound present and S2 normal heart sound present GI Other: The abdomen is soft and nontender Skin General skin exam: no rashes or lesions noted Neuro Other: The patient is awake and seems alert. He seems intoxicated. He has a mild slurring of words. No obvious cranial nerve deficit otherwise. No obvious nystagmus. He is ambulatory. He is very mildly unsteady on his feet. Extrem Other: No peripheral edema. The extremities are uninjured. Medical Decision Making Medical Decision Making MDM Narrative: The patient is a 39-year-old male who presents with alcohol intoxication. He was apparently walking into traffic. He says that this was not because he was feeling suicidal he says he only did it because he has been to be drunk. He was feeling exuberant. He does not wish to be here in the emergency room. He attempted to leave the emergency room but was convinced to returned to his stretcher. He was willing let us call his mother for a sober ride home. We were able to contact his mother who came and picked him up. He is advised to be careful with alcohol in the future. Discharge Plan Discharge Clinical Impression: Alcohol intoxication Patient Disposition: Home, Self-Care Additional Instructions: Please rest and take it easy tonight. Be careful with alcohol in the future. Return to the emergency room if significantly worse. Prescriptions: No Action metoprolol succinate 100 mg tablet extended release 24 hr 1 tab PO DAILY amlodipine 2.5 mg tablet 1 tab PO DAILY levothyroxine 25 mcg tablet 1 tab PO DAILY oxycodone-acetaminophen [Percocet] 5-325 mg tablet 1 tab PO Q8H PRN (Reason: pain) 7 Days Qty: 21 0RF Rx Instructions: Partial Fill upon patient request. ibuprofen 600 mg tablet 600 mg PO Q6H PRN (Reason: fever or pain) Qty: 30 0RF hydrocortisone 2.5 % cream 1 appl topical DAILY PRN (Reason: skin irritation) Qty: 20 0RF Print Language: Polish
[2024-10-03 01:57] VITALS: BP 167/99; PULSE 100; RESP 15; TEMP 37.1; O2SAT 100
== END 2024-10-03 01:57 | disposition home or self-care (01) ==
PROVIDERS: Emergency Provider Emergency Medicine
DX: F10.129 Alcohol abuse with intoxication, unspecified (principal); F17.210 Nicotine dependence, cigarettes, uncomplicated; Y90.9 Presence of alcohol in blood, level not specified; Z79.899 Other long term (current) drug therapy
CPT/HCPCS: 99282

== ENCOUNTER 2024-11-17 00:53 | Emergency (ER) | payer SELFPAY ==
--- NOTE | ~2024-11-17 | XR_ITS ---
CLINICAL HISTORY: kicked ground, pain and swelling 3 view right foot Comparison: None provided Findings: Bones intact. No dislocations. No significant arthritic change or erosions. No ankle effusion. No radiopaque foreign body. Mildly diffuse soft tissue swelling. IMPRESSION: 1. No acute fracture. This document has been electronically signed by: Long Loredo MD on 11/17/2024 01:57:47
[2024-11-17 00:55] VITALS: BP 147/89; PULSE 107; RESP 18; TEMP 37; O2SAT 97; BMI 18.0
--- NOTE | 2024-11-17 01:48 | ED.GENADULT ---
HPI - General Adult General Chief complaint: Extremity Injury, Lower Stated complaint: right foot inj Time Seen by Provider: 11/17/24 01:13 Source: patient, RN notes reviewed and old records reviewed Mode of arrival: ambulatory Limitations: no limitations History of Present Illness ED Provider: Zac LATHAM narrative: 39-year-old male presents for evaluation of right foot pain. Patient reports that he is playing with his dog 2 days ago on Friday. He tried to kick the ball and kicked the ground instead. He has pain to the right medial mid foot. He went to urgent care but they could not do any x-rays. He reports that they gave him a boot and referred him to doing orthopedics he reports not wearing the boot because I can not wear it when I sleep or when I drive. His pain is a 5/10, achy, worse with walking. His pain is improved with ibuprofen and Tylenol he has no pain in the ankle Related Data Home Medications ?Medication ?Instructions ?Recorded ?Confirmed amlodipine 2.5 mg tablet 1 tab PO DAILY 03/20/21 10/18/22 levothyroxine 25 mcg tablet 1 tab PO DAILY 03/20/21 10/18/22 metoprolol succinate 100 mg 1 tab PO DAILY 03/20/21 10/18/22 tablet,extended release 24 hr Previous Rx's ?Medication ?Instructions ?Recorded oxycodone-acetaminophen 5 mg-325 1 tab PO Q8H PRN pain 7 days #21 10/23/22 mg tablet (Percocet) tabs hydrocortisone 2.5 % topical cream 1 appl topical DAILY PRN skin 10/28/22 irritation #20 grams ibuprofen 600 mg tablet 600 mg PO Q6H PRN fever or pain 08/11/23 #30 tabs Allergies Allergy/AdvReac Type Severity Reaction Status Date / Time No Known Allergies Allergy Verified 11/17/24 00:59 Review of Systems Musculoskeletal: Musculoskeletal: Reports arthralgias, Reports joint swelling and Reports limited range of motion PMFSH Past Medical History Medical History Anxiety Depression Hypothyroid HTN (hypertension) Surgical History History of open reduction and internal fixation (ORIF) procedure History of back surgery Social History Social History Alcohol intake: current Alcohol intake frequency: 3 or more drinks per day Alcohol type: beer and hard liquor Patient Tobacco Use Status: Current everyday Tobacco user Tobacco use type: Cigarette Cigarette Packs Per Day: 1 Cigarettes Per Day: 20.0 Substance Use Type: Marijuana Current occupational status: employed and unemployed 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, 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 Physical Exam ED Vital Signs: Vital Signs - 24 hr 11/17/24 00:55 Temperature 98.6 F Pulse Rate 107 H Respiratory Rate 18 Blood Pressure 147/89 H Pulse Oximetry 97 Oxygen Delivery Method Room Air BMI result Body Mass Index 18.0 Const General: healthy appearing, comfortable, no acute distress, alert and awake Nutritional Appearance: well nourished Orientation/consciousness: patient oriented x3 Resp Effort & Inspection: normal respiratory effort, able to speak in complete sentences and not labored Skin General skin exam: no rashes or lesions noted and elasticity normal Neuro General: patient oriented x3 Cranial nerves: Yes CN's II-XII intact bilaterally and Yes Bilaterally intact EOM present Cognition (Neuro): normal cognition Extrem Other: there is mild edema to the right medial mid foot overlying the 1st metatarsal. This area is tender to palpation without deformity. DP and PT pulses 2+ and equal. There is no tenderness to the right medial or lateral malleolus. there is no calf tenderness or Achilles tenderness. Course Reevaluation(s) Reevaluation #1: Alka Chew PA-C have accepted care of the patient and signed out pending imaging of the foot X-ray foot:Findings: Bones intact. No dislocations. No significant arthritic change or erosions. No ankle effusion. No radiopaque foreign body. Mildly diffuse soft tissue swelling. IMPRESSION: 1. No acute fracture. Time: 02:03 Medical Decision Making Medical Decision Making MDM Narrative: 39-year-old male presents for evaluation of right foot injury after accidentally kicking the ground. Plan for x-ray. There was no pain or tenderness to the ankle. There was no calf pain or tenderness, no Achilles pain or tenderness. Differential Diagnosis Differential Diagnoses: The differential diagnosis associated with the presentation includes Foot sprain Contusion Fracture Dislocation Independent Interpretation I performed an independent interpretation of an: Plain X-Ray ( no obvious fracture of the right foot) Discharge Plan Discharge Clinical Impression: Right foot sprain Patient Disposition: Home, Self-Care Instructions: Foot Sprain (ED) Additional Instructions: your x-ray does not show any obvious fracture. I recommend wearing the boot that was provided to you at urgent care and following up with Orthopedics as discussed. Elevate the foot above your heart while resting. Apply ice every 4 hours for 10-15 minutes. Use ibuprofen and/or Tylenol for pain avoid walking or standing for long periods of time Prescriptions: No Action metoprolol succinate 100 mg tablet extended release 24 hr 1 tab PO DAILY amlodipine 2.5 mg tablet 1 tab PO DAILY levothyroxine 25 mcg tablet 1 tab PO DAILY oxycodone-acetaminophen [Percocet] 5-325 mg tablet 1 tab PO Q8H PRN (Reason: pain) 7 Days Qty: 21 0RF Rx Instructions: Partial Fill upon patient request. ibuprofen 600 mg tablet 600 mg PO Q6H PRN (Reason: fever or pain) Qty: 30 0RF hydrocortisone 2.5 % cream 1 appl topical DAILY PRN (Reason: skin irritation) Qty: 20 0RF Print Language: Burkinan
[2024-11-17 02:07] VITALS: BP 147/89; PULSE 107; RESP 18; TEMP 37; O2SAT 97
--- OUTSIDE RECORDS SUMMARY | 2024-11-17 02:11 | XMS_ITS | Clinical Summary ---
Author Organization [facility] Address [address] [place] [address] Care Team Providers Care Immigration Manager Name Role Phone Unavailable Primary Care Provider Unavailabl e Social History Tobacco Use Types Packs/Day Years Used Date Smoking Tobacco: Never Assessed Sex and Gender Information Value Date Recorded Sex Assigned at Not on file Legal Sex Male 5:17 AM EST Gender Identity Not on file Sexual Orientation Not on file Plan of Treatment Health Maintenance Due Date Last Done Comments DTaP,Tdap,and Td Vaccines (1 - Tdap) 07/04/2003 Hepatitis B Vaccines (1 of 3 - 19+ 3-dose series) 07/04/2003 Depression Screening 03/17/2024 COVID-19 Vaccine (1 - 2023-2 5 season) 2024 Influenza Vaccine (#1) 2024 HIB Vaccines Aged Out No longer eligi ble based on patient's age to complete this topic HPV Vaccines Aged Out No longer eligi ble based on patient's age to complete this topic Hepatitis A Vaccines Aged Out No long er eligible based on patient's age to complete this topic IPV Vaccines Aged Out No longer eligi ble based on patient's age to complete this topic MMR Vaccines Aged Out No longer eligi ble based on patient's age to complete this topic Meningococcal ACWY Vaccine Aged Out N o longer eligible based on patient's age to complete this topic Meningococcal B Vaccine Aged Out No l onger eligible based on patient's age to complete this topic Pneumococcal Vaccine: Pediat rics (0 to 5 Years) and At-Risk Patients (6 to 49 Years) Aged Out No longer eligible b ased on patient's age to complete this topic RSV Immunization Patients Un elia 20 months Aged Out No longer eligible b ased on patient's age to complete this topic Varicella Vaccines Aged Out No longer eligible based on patient's age to complete this topic
== END 2024-11-17 02:08 | disposition home or self-care (01) ==
LOC: HO.ED 02:08
PROVIDERS: Emergency Provider Emergency Medicine
DX: S93.601A Unspecified sprain of right foot, initial encounter (principal); X50.1XXA Overexertion from prolonged static or awkward postures, initial encounter; Y93.9 Activity, unspecified; Y92.9 Unspecified place or not applicable; Y99.8 Other external cause status; Z79.899 Other long term (current) drug therapy; F17.210 Nicotine dependence, cigarettes, uncomplicated
CPT/HCPCS: 73630; 99282; 99283

== ENCOUNTER → 2024-11-17 00:55 | Outpatient (BNV) | payer SELFPAY | PROVIDERS: Emergency Provider Emergency Medicine; Visit Provider Radiology Diagnostic Radiology | DX: M79.671 Pain in right foot (principal); R22.41 Localized swelling, mass and lump, right lower limb | CPT/HCPCS: 73630 ==